=== PATIENT | female | born 1960 | race Caucasian/White ===

== ENCOUNTER 2018-01-16 09:28 | Inpatient (IN) | payer MEDICAID ==
[~2018-01-16] VITALS: Ht 175.3 cm; Wt 88.6 kg
[2018-01-16 13:04] LABS: PARTIAL THROMBOPLASTIN TIME 25 SECONDS (22-32); PROTHROMBIN TIME 10.7 SECONDS (9.0-12.0)
[2018-01-16 13:05] LABS: HEMATOCRIT 40.3 % (35.0-45.0); HEMOGLOBIN 13.9 g/dl (12.0-16.0); MEAN CORPUSCULAR HEMOGLOBIN 31.1 PG (27.0-31.0); MEAN CORPUSCULAR HGB CONC 34.6 % (33.0-36.5); MEAN CORPUSCULAR VOLUME 89.9 FL (78-98); MEAN PLATELET VOLUME 10.5 FL (7.4-10.4); PLATELET COUNT 138 X10'3 (140-440); RED BLOOD COUNT 4.49 X10'6 (4.20-5.60); RED CELL DISTRIBUTION WIDTH 14.3 % (11.5-14.5); WHITE BLOOD COUNT 13.1 X10'3 (4.5-11.0)
[2018-01-16 13:12] LABS: ALANINE AMINOTRANSFERASE 160 U/L (12-78); ALBUMIN 3.5 G/DL (3.4-5.0); ALBUMIN/GLOBULIN RATIO 0.9 (1.1-1.5); ALKALINE PHOSPHATASE 147 IU/L (46-116); ANION GAP 8 (8-16); ASPARTATE AMINO TRANSFERASE 84 U/L (10-37); BILIRUBIN,TOTAL 0.5 MG/DL (0.1-1.0); BLOOD UREA NITROGEN 9 MG/DL (7-18); BUN/CREATININE RATIO 16.7 (6.6-38.0); CALCIUM 8.5 MG/DL (8.5-10.1); CHLORIDE 107 MMOL/L (99-107); CREATININE 0.54 MG/DL (0.40-0.90); GLUCOSE 104 MG/DL (70-104); POTASSIUM 3.9 MMOL/L (3.5-5.1); SODIUM 142 MMOL/L (135-145); TOTAL CARBON DIOXIDE 27.5 MMOL/L (24-32); TOTAL PROTEIN 7.5 G/DL (6.4-8.2); eGFR > 90 ML/MIN
[2018-01-16 13:24] LABS: EOSINOPHILS % (MANUAL) 3 % (0-6); LARGE PLATELETS FEW; LYMPHOCYTES % (MANUAL) 10 % (21-51); MONOCYTES % (MANUAL) 3 % (2-12); NEUTROPHILS % (MANUAL) 84 % (42-75); PLATELET ESTIMATE DECREASED; TOTAL CELLS COUNTED 100
[2018-01-16] MEDS ORDERED: ondansetron 4mg rapidly disintigrating tab PO ONE (14:00)
[2018-01-16] MEDS ORDERED: HYDROmorphone 1 mg/ml syringe IV ONE (14:00)
[2018-01-16 14:05] LABS: CREATINE KINASE 91 U/L (26-192)
[2018-01-16] MEDS ORDERED: morphine 4 MG/ML inj SYRINge IV ONE (14:20)
[2018-01-16 14:28] LABS: CLARITY,URINE CLEAR (Clear); COLOR,URINE YELLOW (Yellow); GLUCOSE, URINE NEGATIVE (Neg); KETONES,URINE NEGATIVE (Neg); LEUKOCYTE ESTERASE ,URINE NEGATIVE (Neg); NITRITES, URINE NEGATIVE (Neg); OCCULT BLOOD,URINE TRACE-INTACT (Neg); PROTEIN,URINE NEGATIVE (Neg)
[2018-01-16 14:30] LABS: UA COLLECTION TYPE CLN CATCH MIDSTREAM
[2018-01-16] MEDS: normal saline 1000ml 1,000 ML IV SCH (14:31)
[2018-01-16] MEDS ORDERED: mag hydrox/Alum hydrox/simeth 30ml oral suspension PO PRN (14:35)
[2018-01-16] MEDS ORDERED: acetaminophen 325mg tablet PO PRN (14:35)
[2018-01-16] MEDS ORDERED: ondansetron/PF 4mg/2ml inj IV PRN (14:35)
[2018-01-16] MEDS ORDERED: magnesium hydroxide 30ml (MOM) UD suspension PO PRN (14:35)
[2018-01-16 14:37] LABS: BACTERIA,URINE FEW /HPF (Neg); MUCUS STRANDS NONE SEEN /LPF (Neg); RBC,URINE 0-2 /HPF (0-2); SQUAMOUS EPITHELIAL CELL,UR MODERATE /LPF (FEW); WBC,URINE NONE SEEN /HPF (0-4)
[2018-01-16 14:38] LABS: URINE AMPHETAMINE SCREEN NEGATIVE (Neg); URINE BARBITUATE SCREEN NEGATIVE (Neg); URINE BENZODIAZEPINES SCREEN NEGATIVE (Neg); URINE CANNABINOID SCREEN NEGATIVE (Neg); URINE COCAINE SCREEN NEGATIVE (Neg); URINE METHADONE SCREEN NEGATIVE (Neg); URINE OPIATE SCREEN NEGATIVE (Neg); URINE PHENCYCLIDINE SCREEN NEGATIVE (Neg)
[2018-01-16] MEDS ORDERED: MORPHINE 2MG in 2ml NS syringe IV PRN (16:10)
[2018-01-16] MEDS ORDERED: albuterol 2.5 MG/3 ML nebule NEB PRN (16:15)
[2018-01-16] MEDS: MORPHINE 2MG in 2ml NS syringe IV PRN (16:51)
[2018-01-16] MEDS: acetaminophen 325mg tablet PO SCH ×2 (16:51→20:39)
[2018-01-16] MEDS ORDERED: LISI10TA4 PO (17:02)
[2018-01-16 18:00] VITALS: BP 131/86
[2018-01-16] MEDS: oxyCODONE IR 5mg (immed. release) tablet PO PRN (20:39)
[2018-01-16 22:00] VITALS: BP 120/51
[2018-01-17] VITALS (18 sets, daily range): BP systolic 122–195; BP diastolic 56–125
[2018-01-17] MEDS: normal saline 1000ml 1,000 ML IV SCH ×3 (00:31→15:13)
[2018-01-17] MEDS: oxyCODONE IR 5mg (immed. release) tablet PO PRN ×3 (02:18→15:12)
[2018-01-17] MEDS ORDERED: ceFAZolin 1000mg inj ONE (06:33)
[2018-01-17] MEDS: MORPHINE 2MG in 2ml NS syringe IV PRN (07:21)
[2018-01-17] MEDS: acetaminophen 325mg tablet PO SCH ×3 (07:28→21:00)
[2018-01-17] MEDS ORDERED: fentaNYL/PF 50MCG/1 ML 2ML syringe ONE ×2 (08:35→09:07)
[2018-01-17] MEDS ORDERED: midazolam 2 mg/2 ml injection ONE (08:36)
[2018-01-17] MEDS ORDERED: LIDOcaine 2% (20mg/ml) 5ml vial ONE (08:45)
[2018-01-17] MEDS ORDERED: rocuronium 10mg/ml inj IV ONE (08:45)
[2018-01-17] MEDS ORDERED: propofol inj 20 ML IV ONE (08:45)
[2018-01-17] MEDS ORDERED: ringers solution, lacted 1,000 ML IV SCH (09:38)
[2018-01-17] MEDS ORDERED: ondansetron/PF 4mg/2ml inj IV PRN (09:40)
[2018-01-17] MEDS ORDERED: meperidine/PF 50mg/ml syringe IV PRN ×3 (09:40)
[2018-01-17] MEDS ORDERED: proCHLORperazine 10 MG/2 ml inj IV PRN (09:40)
[2018-01-17] MEDS ORDERED: morphine 4 MG/ML inj SYRINge IV PRN ×2 (09:40)
[2018-01-17] MEDS ORDERED: ipratropium/albuterol 3ml nebule NEB PRN (09:45)
[2018-01-17] MEDS ORDERED: neostigmine methylsulfate 1 MG/ML 10ml vial ONE (09:48)
[2018-01-17] MEDS ORDERED: glycopyrrolate 0.2mg/ml inj ONE (09:48)
[2018-01-17] MEDS ORDERED: haloperidol lactate 5mg/ml inj IM PRN (12:00)
[2018-01-17] MEDS ORDERED: haloperidol 5mg tablet PO PRN (12:00)
[2018-01-17] MEDS ORDERED: LORazepam 2 mg/ml vial IV PRN (12:00)
[2018-01-17] MEDS ORDERED: dextrose 50%-water 50ml dispensing syringe IV PRN (12:00)
[2018-01-17] MEDS ORDERED: LORazepam 1 MG tablet PO PRN (12:00)
[2018-01-17] MEDS ORDERED: lisinopril 10 MG tablet PO ONE (12:30)
[2018-01-17] MEDS ORDERED: metoprolol tartrate 12.5mg (1/2 tablet) PO ONE (12:30)
[2018-01-17 12:44] LABS: BASOPHILS # (AUTO) 0.1 X10'3 (0-0.2); BASOPHILS % (AUTO) 0.8 % (0-1); EOSINOPHILS # (AUTO) 0.3 X10'3 (0-0.9); EOSINOPHILS % (AUTO) 3.5 % (0-6); HEMATOCRIT 38.9 % (35.0-45.0); HEMOGLOBIN 13.2 g/dl (12.0-16.0); LYMPHOCYTES # (AUTO) 1.3 X10'3 (1.1-4.8); MEAN CORPUSCULAR HEMOGLOBIN 31.1 PG (27.0-31.0); MEAN CORPUSCULAR VOLUME 91.4 FL (78-98); MEAN PLATELET VOLUME 10.9 FL (7.4-10.4); MONOCYTES # (AUTO) 0.7 X10'3 (0-0.9); MONOCYTES % (AUTO) 7.3 % (2-12); NEUTROPHILS # (AUTO) 7.4 X10'3 (1.8-7.7); NEUTROPHILS % (AUTO) 75.4 % (42-75); PLATELET COUNT 106 X10'3 (140-440); RED BLOOD COUNT 4.26 X10'6 (4.20-5.60); RED CELL DISTRIBUTION WIDTH 14.6 % (11.5-14.5); WHITE BLOOD COUNT 9.8 X10'3 (4.5-11.0)
[2018-01-17 13:13] LABS: ALANINE AMINOTRANSFERASE 121 U/L (12-78); ALBUMIN 3.1 G/DL (3.4-5.0); ALBUMIN/GLOBULIN RATIO 0.8 (1.1-1.5); ALKALINE PHOSPHATASE 134 IU/L (46-116); ASPARTATE AMINO TRANSFERASE 58 U/L (10-37); BILIRUBIN,TOTAL 0.5 MG/DL (0.1-1.0); BLOOD UREA NITROGEN 12 MG/DL (7-18); CALCIUM 8.2 MG/DL (8.5-10.1); CHLORIDE 105 MMOL/L (99-107); GLUCOSE 109 MG/DL (70-104); POTASSIUM 4.2 MMOL/L (3.5-5.1); TOTAL CARBON DIOXIDE 29.3 MMOL/L (24-32); TOTAL PROTEIN 6.9 G/DL (6.4-8.2); eGFR > 90 ML/MIN
[2018-01-17 13:15] LABS: ANION GAP 8 (8-16); SODIUM 142 MMOL/L (135-145)
[2018-01-17] MEDS ORDERED: tamsulosin 0.4mg capsule PO PRN (18:45)
[2018-01-17] MEDS: metoprolol tartrate 12.5mg (1/2 tablet) PO SCH (19:36)
[2018-01-18] MEDS: oxyCODONE IR 5mg (immed. release) tablet PO PRN ×5 (01:17→20:30)
[2018-01-18 02:00] VITALS: BP 141/60
[2018-01-18] MEDS: normal saline 1000ml 1,000 ML IV SCH (05:26)
[2018-01-18 06:00] VITALS: BP 149/62
[2018-01-18] MEDS: lisinopril 10 MG tablet PO SCH (08:34)
[2018-01-18] MEDS: acetaminophen 325mg tablet PO SCH ×3 (08:35→20:26)
[2018-01-18] MEDS: metoprolol tartrate 12.5mg (1/2 tablet) PO SCH ×2 (08:35→20:25)
[2018-01-18 10:00] VITALS: BP 106/47
[2018-01-18 14:00] VITALS: BP 120/47
[2018-01-18 15:02] LABS: ALBUMIN 2.9 G/DL (3.4-5.0); ALBUMIN/GLOBULIN RATIO 0.8 (1.1-1.5); ANION GAP 4 (8-16); ASPARTATE AMINO TRANSFERASE 48 U/L (10-37); BILIRUBIN,TOTAL 0.6 MG/DL (0.1-1.0); BLOOD UREA NITROGEN 10 MG/DL (7-18); BUN/CREATININE RATIO 15.6 (6.6-38.0); CALCIUM 8.5 MG/DL (8.5-10.1); CHLORIDE 103 MMOL/L (99-107); CREATININE 0.64 MG/DL (0.40-0.90); GLUCOSE 117 MG/DL (70-104); POTASSIUM 3.8 MMOL/L (3.5-5.1); SODIUM 141 MMOL/L (135-145); TOTAL CARBON DIOXIDE 33.7 MMOL/L (24-32); TOTAL PROTEIN 6.7 G/DL (6.4-8.2); eGFR > 90 ML/MIN
[2018-01-18 15:03] LABS: ALANINE AMINOTRANSFERASE 91 U/L (12-78); ALKALINE PHOSPHATASE 122 IU/L (46-116)
[2018-01-18 18:32] VITALS: BP 153/51
[2018-01-18 22:00] VITALS: BP 106/47
[2018-01-19] MEDS: oxyCODONE IR 5mg (immed. release) tablet PO PRN ×6 (00:41→23:46)
[2018-01-19] MEDS: normal saline 1000ml 1,000 ML IV SCH (05:06)
[2018-01-19 06:00] VITALS: BP 135/75
[2018-01-19 06:30] VITALS: BP 160/60
[2018-01-19] MEDS: metoprolol tartrate 12.5mg (1/2 tablet) PO SCH ×2 (07:20→19:58)
[2018-01-19] MEDS: acetaminophen 325mg tablet PO SCH (07:22)
[2018-01-19] MEDS: lisinopril 10 MG tablet PO SCH (07:23)
[2018-01-19 10:00] VITALS: BP 128/56
[2018-01-19 14:00] VITALS: BP 137/52
[2018-01-19 17:07] LABS: BASOPHILS # (AUTO) 0.1 X10'3 (0-0.2); BASOPHILS % (AUTO) 1.6 % (0-1); EOSINOPHILS # (AUTO) 0.4 X10'3 (0-0.9); EOSINOPHILS % (AUTO) 5.7 % (0-6); HEMATOCRIT 35.2 % (35.0-45.0); LYMPHOCYTES # (AUTO) 1.5 X10'3 (1.1-4.8); LYMPHOCYTES % (AUTO) 21.9 % (21-51); MEAN CORPUSCULAR VOLUME 91.3 FL (78-98); MEAN PLATELET VOLUME 10.7 FL (7.4-10.4); MONOCYTES # (AUTO) 0.6 X10'3 (0-0.9); MONOCYTES % (AUTO) 8.3 % (2-12); NEUTROPHILS # (AUTO) 4.3 X10'3 (1.8-7.7); NEUTROPHILS % (AUTO) 62.5 % (42-75); PLATELET COUNT 118 X10'3 (140-440); RED BLOOD COUNT 3.86 X10'6 (4.20-5.60); RED CELL DISTRIBUTION WIDTH 14.4 % (11.5-14.5); WHITE BLOOD COUNT 6.9 X10'3 (4.5-11.0)
[2018-01-19 17:21] LABS: GLUCOSE 116 MG/DL (70-104); SODIUM 141 MMOL/L (135-145)
[2018-01-19 17:22] LABS: ALANINE AMINOTRANSFERASE 86 U/L (12-78); ALBUMIN 2.9 G/DL (3.4-5.0); ALBUMIN/GLOBULIN RATIO 0.8 (1.1-1.5); ALKALINE PHOSPHATASE 129 IU/L (46-116); ANION GAP 7 (8-16); ASPARTATE AMINO TRANSFERASE 51 U/L (10-37); BILIRUBIN,TOTAL 0.4 MG/DL (0.1-1.0); BLOOD UREA NITROGEN 12 MG/DL (7-18); BUN/CREATININE RATIO 18.8 (6.6-38.0); CALCIUM 8.2 MG/DL (8.5-10.1); CHLORIDE 102 MMOL/L (99-107); CREATININE 0.64 MG/DL (0.40-0.90); POTASSIUM 3.8 MMOL/L (3.5-5.1); TOTAL CARBON DIOXIDE 31.9 MMOL/L (24-32); TOTAL PROTEIN 6.7 G/DL (6.4-8.2); eGFR > 90 ML/MIN
[2018-01-19 18:17] VITALS: BP 160/65
[2018-01-19 22:31] VITALS: BP 142/67
[2018-01-20] MEDS: oxyCODONE IR 5mg (immed. release) tablet PO PRN ×3 (05:21→14:17)
[2018-01-20 06:00] VITALS: BP 129/69
[2018-01-20 08:00] VITALS: BP 153/55
[2018-01-20] MEDS ORDERED: enoxaparin 40mg/0.4ml syringe SUBCUT SCH (08:00)
[2018-01-20] MEDS: lisinopril 10 MG tablet PO SCH (08:09)
[2018-01-20] MEDS: metoprolol tartrate 12.5mg (1/2 tablet) PO SCH (08:09)
[2018-01-20 10:00] VITALS: BP 149/58
[2018-01-20] MEDS ORDERED: OXYC-658 PO ×2 (10:23→11:59)
[2018-01-20] MEDS ORDERED: METO25TA6 PO (10:23)
== END 2018-01-20 14:49 | disposition home health service (06) | DRG 308 ==
LOC: ER 09:28 → ED HOLD 14:56 → ORTHO 4S 17:11 → PACU 01-17 09:14 → ORTHO 4S 01-17 11:15
PROVIDERS: ADMIT Internal Medicine; ATTEND Internal Medicine
PROC: 0QH734Z Insertion of Internal Fixation Device into Left Upper Femur, Percutaneous Approach (ICD-10-PCS; principal; 2018-01-17 08:35)
DX: S72.012A Unspecified intracapsular fracture of left femur, initial encounter for closed fracture (principal); K70.10 Alcoholic hepatitis without ascites; I10 Essential (primary) hypertension; J44.9 Chronic obstructive pulmonary disease, unspecified; R74.8 Abnormal levels of other serum enzymes; B18.2 Chronic viral hepatitis C; X58.XXXA Exposure to other specified factors, initial encounter; Y90.0 Blood alcohol level of less than 20 mg/100 ml; R55 Syncope and collapse; F10.129 Alcohol abuse with intoxication, unspecified; Z87.891 Personal history of nicotine dependence; Y93.89 Activity, other specified; Y92.89 Other specified places as the place of occurrence of the external cause; Y99.8 Other external cause status
CPT/HCPCS: 36415; 70450; 71045; 73502; 76000; 80053; 80305; 80320; 81001; 82550; 82948; 85025; 85610; 85730; 87070; 94640; 94760; 96374; 97110; 97116; 97162; 97530; 99285; A4353; A6212; J0690; J1650; J2001; J2250; J2270; J2274; J2704; J2710; J3010; J3490; J7030; J7120

== ENCOUNTER 2018-01-30 10:20 | Outpatient (CLI) | payer MEDICAID ==
[~2018-01-30 10:20] MED LIST: LISI10TA4 PO; METO25TA6 PO; OXYC-658 PO
[2018-01-30 10:30] VITALS: BP 179/80
== END 2018-01-30 11:17 | disposition home or self-care (01) ==
LOC: ORTHO 10:20
PROVIDERS: ATTEND Nurse Practitioner Family
DX: S72.002A Fracture of unspecified part of neck of left femur, initial encounter for closed fracture (principal); I10 Essential (primary) hypertension; B19.20 Unspecified viral hepatitis C without hepatic coma; F17.210 Nicotine dependence, cigarettes, uncomplicated; X58.XXXA Exposure to other specified factors, initial encounter; Y93.89 Activity, other specified; Y92.89 Other specified places as the place of occurrence of the external cause; Y99.8 Other external cause status
CPT/HCPCS: 99213

== ENCOUNTER 2018-02-20 10:20 | Outpatient (CLI) | payer MEDICAID | END 2018-02-20 11:28 | disposition home or self-care (01) | LOC: ORTHO 10:20 | PROVIDERS: ATTEND Nurse Practitioner Family | DX: S89.92XD Unspecified injury of left lower leg, subsequent encounter (principal); I10 Essential (primary) hypertension; F17.210 Nicotine dependence, cigarettes, uncomplicated; X58.XXXD Exposure to other specified factors, subsequent encounter | CPT/HCPCS: 73502 ==

== ENCOUNTER 2018-04-16 09:25 | Outpatient (CLI) | payer MEDICAID ==
[~2018-04-16] VITALS: Ht 175.3 cm; Wt 185.0 kg
[2018-04-16 09:35] VITALS: BP 187/106
== END 2018-04-16 10:10 | disposition home or self-care (01) ==
LOC: ORTHO 09:25
PROVIDERS: ATTEND Nurse Practitioner Family
DX: S72.92XD Unspecified fracture of left femur, subsequent encounter for closed fracture with routine healing (principal); S89.92XD Unspecified injury of left lower leg, subsequent encounter; F17.210 Nicotine dependence, cigarettes, uncomplicated; I10 Essential (primary) hypertension; F10.10 Alcohol abuse, uncomplicated; Z86.19 Personal history of other infectious and parasitic diseases; Z79.899 Other long term (current) drug therapy; Z98.890 Other specified postprocedural states; X58.XXXD Exposure to other specified factors, subsequent encounter
CPT/HCPCS: 73502; 99213

== ENCOUNTER 2018-09-08 11:25 | Emergency (ER) | payer MEDICAID ==
[~2018-09-08] VITALS: Ht 175.3 cm; Wt 84.1 kg
[2018-09-08] MEDS ORDERED: HYDROcodone/acetaminophen 10/325mg tab PO ONE (12:10)
[2018-09-08] MEDS ORDERED: predniSONE 20 mg tablet PO ONE (12:10)
[2018-09-08] MEDS ORDERED: ketorolac trometh inj. 60 MG/2 ML VIAL IM ONE (12:10)
[2018-09-08] MEDS ORDERED: orphenadrine citrate 60mg/2ml inj. IM ONE (12:10)
[2018-09-08 12:28] VITALS: BP 177/97
[2018-09-08] MEDS ORDERED: PRED20TA PO (13:08)
[2018-09-08] MEDS ORDERED: ORPH100T2 PO (13:08)
[2018-09-08] MEDS ORDERED: HYDR-4353 PO (13:08)
== END 2018-09-08 13:33 | disposition home or self-care (01) ==
LOC: ER 11:26
DX: M54.41 Lumbago with sciatica, right side (principal); F12.10 Cannabis abuse, uncomplicated
CPT/HCPCS: 96372; 99284; J1885; J2360; J7512

== ENCOUNTER 2018-09-21 15:38 | Emergency (ER) | payer MEDICAID ==
[~2018-09-21] VITALS: Ht 175.3 cm; Wt 83.5 kg
[~2018-09-21 15:38] MED LIST changes: +HYDR-4353 PO; +ORPH100T2 PO; +PRED20TA PO
[2018-09-21 15:57] VITALS: BP 166/79
[2018-09-21] MEDS ORDERED: gabapentin 400mg capsule PO ONE (16:20)
[2018-09-21] MEDS ORDERED: gabapentin 300mg capsule PO ONE (16:20)
[2018-09-21] MEDS ORDERED: ondansetron 4mg rapidly disintigrating tab PO ONE (16:20)
[2018-09-21] MEDS ORDERED: ONDA4TAB6 PO (16:30)
[2018-09-21] MEDS ORDERED: GABA-532 PO (16:30)
--- NOTE | 2018-09-21 16:35 | NUR ---
Pt has no physical complaints at this time aside from nausea due to ETOH withdrawal.
== END 2018-09-21 16:41 | disposition home or self-care (01) ==
LOC: ER 15:39
DX: F10.239 Alcohol dependence with withdrawal, unspecified (principal); Z02.89 Encounter for other administrative examinations; F12.90 Cannabis use, unspecified, uncomplicated; Z79.899 Other long term (current) drug therapy; Y90.9 Presence of alcohol in blood, level not specified
CPT/HCPCS: 99284

== ENCOUNTER 2019-08-18 15:21 | Observation (INO) | payer MEDICAID, OTHER ==
[~2019-08-18] VITALS: Ht 175.3 cm; Wt 86.4 kg
[~2019-08-18 15:21] MED LIST changes: +ALBU6.7H9 INH; +GABA-532 PO; +GUAI120015 PO; -HYDR-4353 PO; +ONDA4TAB6 PO; -PRED20TA PO
[2019-08-18 16:05] LABS: EOSINOPHILS # (AUTO) 0.2 X10'3 (0-0.9); EOSINOPHILS % (AUTO) 2.5 % (0-6); HEMOGLOBIN 14.3 g/dl (12.0-16.0); MEAN CORPUSCULAR HEMOGLOBIN 32.4 PG (27.0-31.0)
[2019-08-18 16:08] LABS: BASOPHILS # (AUTO) 0.1 X10'3 (0-0.2); BASOPHILS % (AUTO) 0.9 % (0-1); HEMATOCRIT 41.4 % (35.0-45.0); LYMPHOCYTES # (AUTO) 1.7 X10'3 (1.1-4.8); LYMPHOCYTES % (AUTO) 22.9 % (21-51); MEAN CORPUSCULAR HGB CONC 34.5 g/dL (33.0-36.5); MEAN PLATELET VOLUME 10.3 FL (7.4-10.4); MONOCYTES # (AUTO) 0.7 X10'3 (0-0.9); MONOCYTES % (AUTO) 9.3 % (2-12); NEUTROPHILS # (AUTO) 4.8 X10'3 (1.8-7.7); NEUTROPHILS % (AUTO) 64.4 % (42-75); PLATELET COUNT 122 X10'3 (140-440); RED CELL DISTRIBUTION WIDTH 14.8 % (11.5-14.5); WHITE BLOOD COUNT 7.5 X10'3 (4.5-11.0)
[2019-08-18 16:23] LABS: ALANINE AMINOTRANSFERASE 128 U/L (12-78); ALBUMIN 3.7 G/DL (3.4-5.0); ALBUMIN/GLOBULIN RATIO 0.9 (1.1-1.5); ALKALINE PHOSPHATASE 109 IU/L (46-116); ANION GAP 10 (8-16); ASPARTATE AMINO TRANSFERASE 77 U/L (10-37); BILIRUBIN,TOTAL 0.5 MG/DL (0.1-1.0); BLOOD UREA NITROGEN 12 MG/DL (7-18); BUN/CREATININE RATIO 16.9 (6.6-38.0); CHLORIDE 102 MMOL/L (99-107); CREATININE 0.71 MG/DL (0.40-0.90); GLUCOSE 102 MG/DL (70-104); SODIUM 140 MMOL/L (135-145); TOTAL CARBON DIOXIDE 27.8 MMOL/L (24-32); TOTAL PROTEIN 7.8 G/DL (6.4-8.2); eGFR 85 ML/MIN
[2019-08-18] MEDS ORDERED: aspirin 81mg tab.chew PO ONE (16:50)
[2019-08-18] MEDS ORDERED: nitroGLYCERIN 0.4mg SUBLingual tab SL PRN ×3 (16:50→18:15)
--- NOTE | 2019-08-18 17:25 | NUR ---
PER SHAHZAD LOPEZ, HOLD OFF ON NITRO.
[2019-08-18] MEDS ORDERED: cloNIDine 0.1 mg tablet PO ONE (17:35)
[2019-08-18] MEDS ORDERED: metoprolol tartrate 1mg/ml inj IV ONE (17:35)
[2019-08-18] MEDS ORDERED: mag hydrox/Alum hydrox/simeth 30ml oral suspension PO PRN (18:05)
[2019-08-18] MEDS ORDERED: morphine 2 MG/ML inj. syringe IV PRN ×2 (18:05)
[2019-08-18] MEDS ORDERED: ondansetron/PF 4mg/2ml inj IV PRN (18:05)
[2019-08-18] MEDS ORDERED: acetaminophen 325mg tablet PO PRN ×2 (18:05)
[2019-08-18] MEDS ORDERED: HYDROcodone/acetaminophen 5mg/325mg tablet PO PRN (18:05)
[2019-08-18] MEDS ORDERED: magnesium hydroxide 30ml (MOM) UD suspension PO PRN (18:05)
[2019-08-18] MEDS ORDERED: furosemide 10 MG/1 ML 10ml inj IV ONE (18:15)
[2019-08-18] MEDS ORDERED: regadenoson 0.4mg/5ml syringe IV PRN (18:15)
[2019-08-18] MEDS ORDERED: aminophylline 250mg/10ml inj. IV PRN (18:15)
[2019-08-18] MEDS ORDERED: metoprolol tartrate 1mg/ml inj IV PRN (18:15)
--- NOTE | 2019-08-18 19:59 | NUR ---
AIR MARSHAL INFORMED PATIENT ON TELE #27
--- NOTE | 2019-08-18 21:00 | NUR ---
received report from TANYA De Luna
[2019-08-18 22:00] VITALS: BP 93/48
[2019-08-19] VITALS (11 sets, daily range): BP systolic 117–151; BP diastolic 56–80
--- NOTE | 2019-08-19 00:01 | NUR ---
OPTOELECTRONICS ENGINEER INFORMED PATIENT ON TELE #25
[2019-08-19 05:23] LABS: CHOL/HDL RATIO 2.9 (0.00-4.99); CHOLESTEROL 168 MG/DL (0-200); HDL CHOLESTEROL 57 MG/DL (35-60); LDL CHOLESTEROL 106 MG/DL (50-100); TRIGLYCERIDES 61 MG/DL (20-135)
--- NOTE | 2019-08-19 06:05 | NUR ---
Patient in room MED 311. I have received report from TANYA Kay and had the opportunity to ask questions and assume patient care.
--- NOTE | 2019-08-19 06:05 | NUR ---
gave report to TANYA Sim and TANYA Clark "o"
[2019-08-19] MEDS ORDERED: aspirin 81mg tablet.DR PO SCH (08:00)
[2019-08-19] MEDS ORDERED: lisinopril 10 MG tablet PO SCH (08:00)
[2019-08-19] MEDS ORDERED: nitroGLYCERIN 0.4mg/hour patch TD SCH (08:00)
[2019-08-19 08:37] LABS: BASOPHILS # (AUTO) 0.1 X10'3 (0-0.2); BASOPHILS % (AUTO) 1.4 % (0-1); EOSINOPHILS # (AUTO) 0.2 X10'3 (0-0.9); EOSINOPHILS % (AUTO) 3.5 % (0-6); HEMATOCRIT 39.7 % (35.0-45.0); HEMOGLOBIN 13.6 g/dl (12.0-16.0); LYMPHOCYTES # (AUTO) 1.8 X10'3 (1.1-4.8); LYMPHOCYTES % (AUTO) 27.5 % (21-51); MEAN CORPUSCULAR HEMOGLOBIN 31.9 PG (27.0-31.0); MEAN CORPUSCULAR HGB CONC 34.2 g/dL (33.0-36.5); MEAN CORPUSCULAR VOLUME 93.3 FL (78-98); MEAN PLATELET VOLUME 10.6 FL (7.4-10.4); MONOCYTES # (AUTO) 0.6 X10'3 (0-0.9); MONOCYTES % (AUTO) 9.8 % (2-12); NEUTROPHILS # (AUTO) 3.8 X10'3 (1.8-7.7); NEUTROPHILS % (AUTO) 57.8 % (42-75); PLATELET COUNT 115 X10'3 (140-440); RED BLOOD COUNT 4.26 X10'6 (4.20-5.60); RED CELL DISTRIBUTION WIDTH 14.5 % (11.5-14.5); WHITE BLOOD COUNT 6.5 X10'3 (4.5-11.0)
[2019-08-19 08:50] LABS: ALBUMIN 3.2 G/DL (3.4-5.0); ANION GAP 6 (8-16); BLOOD UREA NITROGEN 14 MG/DL (7-18); CALCIUM 8.6 MG/DL (8.5-10.1); CHLORIDE 104 MMOL/L (99-107); CREATININE 0.61 MG/DL (0.40-0.90); GLUCOSE 97 MG/DL (70-104); SODIUM 139 MMOL/L (135-145); TOTAL CARBON DIOXIDE 28.8 MMOL/L (24-32); eGFR > 90 ML/MIN
[2019-08-19 08:58] LABS: POTASSIUM 3.9 MMOL/L (3.5-5.1)
--- NOTE | 2019-08-19 09:20 | NUR ---
Patient to AL for stress test.
[2019-08-19] MEDS ORDERED: furosemide 20 MG/2 ML vial IV ONE (11:25)
--- NOTE | 2019-08-19 12:15 | NUR ---
DR. LÓPEZ SAYS OKAY FOR PATIENT TO EAT MENDY NEGATIVE
[2019-08-19] MEDS ORDERED: FURO-150 PO (12:38)
--- NOTE | 2019-08-19 12:42 | NUR ---
PAGED ECHO "IF YOU CAN PLEASE COME DO ECHO ON ROOM 311 EVAN, SHE WILL LIKELY GO HOME AFTERWARD. THANK YOU, ERNA MULLEN [phone]"
--- NOTE | 2019-08-19 14:15 | NUR ---
IV removed from R AC Catheter intact no s/s of complications, and pt tolerated well.
--- NOTE | 2019-08-19 14:15 | NUR ---
Patient stable for discharge per MD orders. Prescription called in to [facility] pharmacy in [place] at 1425. All discharge instructions reviewed with patient, all questions answered. PIV discontinued, cannula intact. Clean dry dressing in place. Flu vaccine given. traffic monitor specialist removed. All belongings collected, sent with patient. Patient ambulated to [facility] with hospital personnel, to transport self home. Patient left facility at 1425.
[2019-08-20] MEDS ORDERED: pneumococcal 23-VAL P-sac vacc 25 mcg/0.5ml vial IMVAC ONE (10:00)
[2019-08-20] MEDS ORDERED: FLU VACC QS2019-20 36MOS UP/PF 60 MCG/0.5 ML SYRINGE IMVAC ONE (11:00)
== END 2019-08-19 14:15 | disposition home or self-care (01) ==
LOC: ER 15:21 → ED HOLD 18:03 → MED 3N 19:40
PROVIDERS: ADMIT Internal Medicine; ATTEND Internal Medicine
DX: R07.89 Other chest pain (principal); I10 Essential (primary) hypertension; J44.9 Chronic obstructive pulmonary disease, unspecified; F17.210 Nicotine dependence, cigarettes, uncomplicated; Z23 Encounter for immunization; Z79.899 Other long term (current) drug therapy
CPT/HCPCS: 36415; 71045; 78452; 80048; 80053; 80061; 83880; 84484; 85025; 87081; 90471; 93005; 93017; 93306; 96374; 96375; 96376; 99284; A9500; G0378; J0280; J1940; J2785; J3490; Q2037

== ENCOUNTER 2020-12-01 17:55 | Emergency (ER) | payer MEDICAID ==
[~2020-12-01] VITALS: Ht 170.2 cm; Wt 81.8 kg
[~2020-12-01 17:55] MED LIST changes: -ALBU6.7H9 INH; +FURO-150 PO; -GABA-532 PO; -GUAI120015 PO; +LISI10TA27 PO; -LISI10TA4 PO; -METO25TA6 PO; -ONDA4TAB6 PO; -ORPH100T2 PO; -OXYC-658 PO
[2020-12-01] MEDS ORDERED: fentaNYL/PF 50MCG/1 ML 2ML syringe IV ONE (18:50)
[2020-12-01] MEDS ORDERED: ceFAZolin/D5W- 1GM premix 50 ML IV STA (19:04)
[2020-12-01] MEDS ORDERED: propofol 10mg/ml 20ml vial IV ONE (19:10)
--- NOTE | 2020-12-01 20:02 | NUR ---
a total of 200 mg of Propofol given during procedure
[2020-12-01] MEDS ORDERED: CEPH-585 PO (20:07)
[2020-12-01] MEDS ORDERED: HYDR-3972 PO (20:07)
[2020-12-01 20:12] VITALS: BP 141/78
== END 2020-12-01 20:35 | disposition home or self-care (01) ==
LOC: ER 17:55
DX: S52.512A Displaced fracture of left radial styloid process, initial encounter for closed fracture (principal); M25.532 Pain in left wrist; I10 Essential (primary) hypertension; J44.9 Chronic obstructive pulmonary disease, unspecified; F12.90 Cannabis use, unspecified, uncomplicated; Z72.89 Other problems related to lifestyle; Z79.2 Long term (current) use of antibiotics; Z79.899 Other long term (current) drug therapy; W01.0XXA Fall on same level from slipping, tripping and stumbling without subsequent striking against object, initial encounter; Y93.01 Activity, walking, marching and hiking; Y92.89 Other specified places as the place of occurrence of the external cause; Y99.8 Other external cause status
CPT/HCPCS: 25605; 73110; 94799; 96374; 96375; 99152; 99285; J0690; J3010; 94760

== ENCOUNTER 2020-12-15 09:28 | Day surgery (SDC) | payer MEDICAID ==
[~2020-12-15] VITALS: Ht 172.7 cm; Wt 81.6 kg
[2020-12-15] VITALS (12 sets, daily range): BP systolic 161–191; BP diastolic 73–99
[~2020-12-15 09:28] MED LIST changes: +ALBU8.5H8 INH; +AMLO5TAB16 PO; +BECL7.3A INH; +CALC-642 PO; +CEPH250T PO; +CHOL400T57 PO; +FLUO10CA30 PO; -FURO-150 PO; +GABA-530 PO; +HYDR-3972 PO; +IBUP-1984 PO; +LIDOcaine 1% (10mg/ml) 2ml vial ONE; -LISI10TA27 PO; +LISI20TA28 PO; +NAPR-996 PO; +albuterol 2.5 MG/3 ML nebule NEB ONE; +cefazolin/dext.iso 2gm/100ml 100 ML IV ONE; +famotidine 20mg tablet PO ONE; +ringers solution, lacted 1,000 ML IV SCH
[2020-12-15] MEDS ORDERED: ipratropium/albuterol 3ml nebule NEB PRN (11:15)
[2020-12-15 11:21] LABS: BASOPHILS # (AUTO) 0.1 X10'3 (0-0.2); EOSINOPHILS # (AUTO) 0.3 X10'3 (0-0.9); HEMOGLOBIN 12.9 g/dl (12.0-16.0); RED CELL DISTRIBUTION WIDTH 15.6 % (11.5-14.5)
[2020-12-15 11:22] LABS: BASOPHILS % (AUTO) 1.1 % (0-1); EOSINOPHILS % (AUTO) 5.7 % (0-6); HEMATOCRIT 38.5 % (35.0-45.0); LYMPHOCYTES # (AUTO) 1.2 X10'3 (1.1-4.8); LYMPHOCYTES % (AUTO) 20.3 % (21-51); MEAN CORPUSCULAR HEMOGLOBIN 30.6 PG (27.0-31.0); MEAN CORPUSCULAR HGB CONC 33.5 g/dL (33.0-36.5); MEAN CORPUSCULAR VOLUME 91.1 FL (78-98); MEAN PLATELET VOLUME 9.6 FL (7.4-10.4); MONOCYTES # (AUTO) 0.6 X10'3 (0-0.9); MONOCYTES % (AUTO) 9.7 % (2-12); NEUTROPHILS # (AUTO) 3.9 X10'3 (1.8-7.7); NEUTROPHILS % (AUTO) 63.2 % (42-75); PLATELET COUNT 145 X10'3 (140-440); RED BLOOD COUNT 4.23 X10'6 (4.20-5.60); WHITE BLOOD COUNT 6.1 X10'3 (4.5-11.0)
[2020-12-15 11:35] LABS: PARTIAL THROMBOPLASTIN TIME 26 SECONDS (22-32)
[2020-12-15 11:37] LABS: ALANINE AMINOTRANSFERASE 49 U/L (12-78); ALBUMIN 3.4 G/DL (3.4-5.0); ALBUMIN/GLOBULIN RATIO 0.8 (1.1-1.5); ALKALINE PHOSPHATASE 168 IU/L (46-116); ANION GAP 7 (8-16); ASPARTATE AMINO TRANSFERASE 45 U/L (10-37); BILIRUBIN,TOTAL 0.5 MG/DL (0.1-1.0); BLOOD UREA NITROGEN 9 MG/DL (7-18); CALCIUM 8.8 MG/DL (8.5-10.1); CHLORIDE 104 MMOL/L (99-107); CREATININE 0.45 MG/DL (0.40-0.90); GLUCOSE 98 MG/DL (70-104); POTASSIUM 3.6 MMOL/L (3.5-5.1); SODIUM 142 MMOL/L (135-145); TOTAL CARBON DIOXIDE 30.7 MMOL/L (24-32); TOTAL PROTEIN 7.5 G/DL (6.4-8.2); eGFR > 90 ML/MIN
[2020-12-15] MEDS ORDERED: sevoflurane 250ml liquid IH ONE (13:25)
[2020-12-15] MEDS ORDERED: midazolam 1 mg/ML 2ml injection ONE ×2 (13:27)
[2020-12-15] MEDS ORDERED: fentaNYL/PF 50MCG/1 ML 2ML syringe ONE (13:27)
[2020-12-15] MEDS ORDERED: BUPIVAcaine/PF 2.5 mg/ml (0.25%) 30ml vial ONE (14:09)
[2020-12-15] MEDS ORDERED: proCHLORperazine 10 MG/2 ml inj IV PRN (14:30)
[2020-12-15] MEDS ORDERED: morphine 4 MG/ML inj SYRINge IV PRN (14:30)
[2020-12-15] MEDS ORDERED: ringers solution, lacted 1,000 ML IV SCH (14:30)
[2020-12-15] MEDS ORDERED: morphine 2 MG/ML inj. syringe IV PRN (14:30)
[2020-12-15] MEDS ORDERED: ondansetron/PF 4mg/2ml inj IV PRN (14:30)
[2020-12-15] MEDS ORDERED: meperidine/PF 25mg/ml syringe IV PRN ×3 (14:30)
[2020-12-15] MEDS ORDERED: ROPIVAcaine 0.5% (5mg/ml) 30ml vial ONE (14:48)
[2020-12-15] MEDS ORDERED: rocuronium 10mg/ml inj IV ONE (14:48)
[2020-12-15] MEDS ORDERED: glycopyrrolate 0.2mg/ml inj ONE (14:48)
[2020-12-15] MEDS ORDERED: LIDOcaine 1%/PF 5ML 10 MG/ML VIAL ONE (14:48)
[2020-12-15] MEDS ORDERED: neostigmine methylsulfate 1 MG/ML 10ml vial ONE (14:48)
[2020-12-15] MEDS ORDERED: propofol inj 20 ML IV ONE (14:48)
[2020-12-15] MEDS ORDERED: ondansetron/PF 4mg/2ml inj ONE (14:48)
[2020-12-15] MEDS ORDERED: acetaminophen 1,000mg/100ml IV 100 ML IV ONE (14:49)
[2020-12-15] MEDS ORDERED: ketorolac trometh. 30mg/ml inj. ONE (14:49)
[2020-12-15] MEDS ORDERED: dexamethasone sod phosphate 4mg/ml inj. ONE (14:49)
--- NOTE | 2020-12-15 15:22 | NUR ---
Received from OR via [facility] IN STABLE CONDITION, DRESSING CDI AND IV FLUIDS RUNNING , accompanied by Anesthesiologist DR. JACKSON and report given by Anesthesiolgist. Addendum: 12/15/20 at 1538 by Natalya Luo RN Amended: Links added.
[2020-12-15] MEDS ORDERED: labetalol 20mg/4ml (5mg/ml) syringe IV PRN (16:05)
--- NOTE | 2020-12-15 17:21 | NUR ---
PATIENT DISCHARGED HOME VIA WHEELCHAIR IN STABLE CONDITION AFTER VERBAL AND WRITTEN DISCHARGE INSTRUCTIONS GIVEN. IV DC'D, DRESSING CLEAN DRY AND INTACT. PATIENT LEFT IN PRIVATE VEHICLE WITH FAMILY MEMBER WITHOUT INCIDENT. PATIENT LEFT WITH PERSONAL BELONGINGS INCLUDING GLASSES, DENTURES, CELLPHONE AND WALKER. Addendum: 12/15/20 at 1722 by Natalya Luo RN Amended: Links added.
== END 2020-12-15 16:54 | disposition home or self-care (01) ==
LOC: PAS 09:28
PROVIDERS: ATTEND Orthopaedic Surgery Hand Surgery
DX: S52.572A Other intraarticular fracture of lower end of left radius, initial encounter for closed fracture (principal); S52.292A Other fracture of shaft of left ulna, initial encounter for closed fracture; G89.18 Other acute postprocedural pain; Z79.01 Long term (current) use of anticoagulants; J44.9 Chronic obstructive pulmonary disease, unspecified; F17.210 Nicotine dependence, cigarettes, uncomplicated; I10 Essential (primary) hypertension; G89.29 Other chronic pain; M19.90 Unspecified osteoarthritis, unspecified site; M81.0 Age-related osteoporosis without current pathological fracture; Z86.19 Personal history of other infectious and parasitic diseases; Z72.89 Other problems related to lifestyle; Z20.822 Contact with and (suspected) exposure to COVID-19; Z79.899 Other long term (current) drug therapy; W19.XXXA Unspecified fall, initial encounter; Y93.89 Activity, other specified; Y92.098 Other place in other non-institutional residence as the place of occurrence of the external cause; Y99.8 Other external cause status
CPT/HCPCS: 25545; 25609; 64415; 76942; 80053; 82948; 85025; 85610; 85730; 87426; 93005; 94640; 94760; A6258; C1713; J0131; J1100; J1885; J2001; J2250; J2405; J2704; J2710; J3010; J3490; A4618; A6449; A7000; J2795; J7120

== ENCOUNTER 2021-01-05 03:11 | Emergency (ER) | payer MEDICAID ==
[~2021-01-05] VITALS: Ht 162.6 cm; Wt 82.2 kg
[~2021-01-05 03:11] MED LIST changes: -LIDOcaine 1% (10mg/ml) 2ml vial ONE; -albuterol 2.5 MG/3 ML nebule NEB ONE; -cefazolin/dext.iso 2gm/100ml 100 ML IV ONE; -famotidine 20mg tablet PO ONE; -ringers solution, lacted 1,000 ML IV SCH
[2021-01-05] MEDS ORDERED: normal saline 1000ml 1,000 ML IVB ONE (03:20)
--- NOTE | 2021-01-05 04:24 | NUR ---
Patient sleeping and is in no acute distress.
[2021-01-05 05:25] VITALS: BP 144/68
[2021-01-05] MEDS ORDERED: normal saline 1000ML IV soln IVB ONE (08:20)
--- NOTE | 2021-01-05 08:26 | NUR ---
IN TO SEE PT NOTED SMELL OF KETONES IN ROOM. ACCU CHECK 113. DR NATARAJAN NOTIFED ORDERS RECIEVED FOR LAB WORK AND IVF.
[2021-01-05 08:43] LABS: BASOPHILS # (AUTO) 0.1 X10'3 (0-0.2); BASOPHILS % (AUTO) 0.7 % (0-1); EOSINOPHILS % (AUTO) 0.2 % (0-6); HEMATOCRIT 42.2 % (35.0-45.0); HEMOGLOBIN 14.5 g/dl (12.0-16.0); LYMPHOCYTES # (AUTO) 2.4 X10'3 (1.1-4.8); LYMPHOCYTES % (AUTO) 23.3 % (21-51); MEAN CORPUSCULAR HEMOGLOBIN 31.8 PG (27.0-31.0); MEAN CORPUSCULAR HGB CONC 34.2 g/dL (33.0-36.5); MEAN PLATELET VOLUME 9.8 FL (7.4-10.4); MONOCYTES # (AUTO) 0.7 X10'3 (0-0.9); NEUTROPHILS % (AUTO) 68.8 % (42-75); PLATELET COUNT 235 X10'3 (140-440); RED BLOOD COUNT 4.54 X10'6 (4.20-5.60); RED CELL DISTRIBUTION WIDTH 15.8 % (11.5-14.5); WHITE BLOOD COUNT 10.1 X10'3 (4.5-11.0)
[2021-01-05 09:00] LABS: ALANINE AMINOTRANSFERASE 51 U/L (12-78); ALBUMIN 3.5 G/DL (3.4-5.0); ALBUMIN/GLOBULIN RATIO 0.8 (1.1-1.5); ALKALINE PHOSPHATASE 185 IU/L (46-116); ANION GAP 13 (8-16); ASPARTATE AMINO TRANSFERASE 52 U/L (10-37); BILIRUBIN,TOTAL 0.3 MG/DL (0.1-1.0); BLOOD UREA NITROGEN 17 MG/DL (7-18); BUN/CREATININE RATIO 18.9 (6.6-38.0); CALCIUM 7.2 MG/DL (8.5-10.1); CHLORIDE 106 MMOL/L (99-107); GLUCOSE 116 MG/DL (70-104); POTASSIUM 3.5 MMOL/L (3.5-5.1); SODIUM 145 MMOL/L (135-145); TOTAL CARBON DIOXIDE 25.9 MMOL/L (24-32); TOTAL PROTEIN 7.7 G/DL (6.4-8.2); eGFR 64 ML/MIN
== END 2021-01-05 10:42 | disposition home or self-care (01) ==
LOC: ER 03:11
DX: F10.129 Alcohol abuse with intoxication, unspecified (principal); I10 Essential (primary) hypertension; J44.9 Chronic obstructive pulmonary disease, unspecified; F17.210 Nicotine dependence, cigarettes, uncomplicated; F12.90 Cannabis use, unspecified, uncomplicated; Z72.89 Other problems related to lifestyle; Z79.2 Long term (current) use of antibiotics; Z79.899 Other long term (current) drug therapy; Y90.0 Blood alcohol level of less than 20 mg/100 ml
CPT/HCPCS: 36415; 80053; 80320; 82948; 85025; 96360; 96361; 99284; J7030

== ENCOUNTER 2021-01-30 11:10 | Day surgery (SDC) | payer MEDICAID ==
[~2021-01-30] VITALS: Ht 175.3 cm; Wt 81.8 kg
[2021-01-30 11:20] VITALS: BP 143/67
[2021-01-30] MEDS ORDERED: DULO60CA63 PO (11:55)
[2021-01-30] MEDS ORDERED: fentaNYL/PF 50MCG/1 ML 2ML syringe ONE (12:03)
[2021-01-30] MEDS ORDERED: MIDAZolam 1 MG/ML 5ML VIAL ONE (12:04)
[2021-01-30] MEDS ORDERED: LIDOcaine Viscous 15ml cup ONE (12:04)
[2021-01-30 13:05] VITALS: BP 146/84
[2021-01-30 13:15] VITALS: BP 125/81
[2021-01-30 13:25] VITALS: BP 139/74
[2021-01-30 13:35] VITALS: BP 150/97
== END 2021-01-30 13:45 | disposition home or self-care (01) ==
LOC: GI LAB 11:10
PROVIDERS: ATTEND Internal Medicine Gastroenterology
DX: K74.60 Unspecified cirrhosis of liver (principal); I85.00 Esophageal varices without bleeding; K29.50 Unspecified chronic gastritis without bleeding; B96.81 Helicobacter pylori [H. pylori] as the cause of diseases classified elsewhere; F17.210 Nicotine dependence, cigarettes, uncomplicated; I10 Essential (primary) hypertension; Z86.19 Personal history of other infectious and parasitic diseases; Z79.899 Other long term (current) drug therapy
CPT/HCPCS: 43239; 99152; J2250; J3010; J7040; A4620

== ENCOUNTER 2021-07-06 14:09 | Emergency (ER) | payer MEDICAID ==
[~2021-07-06] VITALS: Ht 175.3 cm; Wt 90.9 kg
[~2021-07-06 14:09] MED LIST changes: +ALBU8.5H17 INH; -ALBU8.5H8 INH; -AMLO5TAB16 PO; +ASPI81TA52 PO; -BECL7.3A INH; -CEPH250T PO; +DULO20CA18 PO; +ELBA1TAB PO; -FLUO10CA30 PO; -IBUP-1984 PO; +LOSA25TA96 PO; +NALT50TA PO; -NAPR-996 PO; +OMEP-50 PO
[2021-07-06 14:38] VITALS: BP 143/39
[2021-07-06] MEDS ORDERED: HYDR-3972 PO ×2 (14:51→15:02)
== END 2021-07-06 15:28 | disposition home or self-care (01) ==
LOC: ER 14:10
DX: M25.561 Pain in right knee (principal); M19.90 Unspecified osteoarthritis, unspecified site; I10 Essential (primary) hypertension; J44.9 Chronic obstructive pulmonary disease, unspecified; G89.29 Other chronic pain; F12.90 Cannabis use, unspecified, uncomplicated; Z72.89 Other problems related to lifestyle; Z98.890 Other specified postprocedural states; Z79.82 Long term (current) use of aspirin; Z79.899 Other long term (current) drug therapy
CPT/HCPCS: 99283

== ENCOUNTER 2021-10-23 05:25 | Day surgery (SDC) | payer MEDICAID ==
[2021-10-15 12:30] LABS: BASOPHILS # (AUTO) 0.1 X10'3 (0-0.2); EOSINOPHILS # (AUTO) 0.3 X10'3 (0-0.9); EOSINOPHILS % (AUTO) 3.6 % (0-6); LYMPHOCYTES # (AUTO) 1.7 X10'3 (1.1-4.8); MEAN CORPUSCULAR HEMOGLOBIN 31.2 PG (27.0-31.0); MEAN CORPUSCULAR HGB CONC 33.9 g/dL (33.0-36.5); MEAN CORPUSCULAR VOLUME 92.1 FL (78-98); MEAN PLATELET VOLUME 10.6 FL (7.4-10.4); MONOCYTES # (AUTO) 0.9 X10'3 (0-0.9); MONOCYTES % (AUTO) 10.7 % (2-12); NEUTROPHILS # (AUTO) 5.5 X10'3 (1.8-7.7); NEUTROPHILS % (AUTO) 64.7 % (42-75); PRE OP HEMATOCRIT 43.3 % (35.0-45.0); PRE OP HEMOGLOBIN 14.7 g/dL (12.0-16.0); PRE OP PLATELET COUNT 161 X10'3 (140-440); RED CELL DISTRIBUTION WIDTH 14.9 % (11.5-14.5)
[2021-10-15 12:54] LABS: ALBUMIN 3.8 G/DL (3.4-5.0); ALKALINE PHOSPHATASE 131 IU/L (46-116); BLOOD UREA NITROGEN 10 MG/DL (7-18); BUN/CREATININE RATIO 16.4 (6.6-38.0); CALCIUM 9.1 MG/DL (8.5-10.1); CHLORIDE 103 MMOL/L (99-107); CREATININE 0.61 MG/DL (0.40-0.90); PRE OP ALT 37 U/L (30-65); PRE OP ANION GAP 5 (8-16); PRE OP AST 28 U/L (10-37); PRE OP BILIRUB, TOTAL 0.3 MG/DL (0.0-1.0); PRE OP GLUCOSE 79 MG/DL (70-104); PRE OP POTASSIUM 4.5 MMOL/L (3.4-5.1); PRE OP SODIUM 141 MMOL/L (135-145); TOTAL CARBON DIOXIDE 33.2 MMOL/L (24-32); TOTAL PROTEIN 7.6 G/DL (6.4-8.2); eGFR > 90 ML/MIN
[~2021-10-23] VITALS: Ht 175.3 cm; Wt 97.5 kg
[2021-10-23] VITALS (7 sets, daily range): BP systolic 127–139; BP diastolic 59–67
[~2021-10-23 05:25] MED LIST changes: -ASPI81TA52 PO; +BUSP5TAB3 PO; +DOXY-1 PO; -ELBA1TAB PO; +IBUP-1986 PO; -NALT50TA PO; +NIFE-58 PO; -OMEP-50 PO; +OMEP20CA16 PO; +ringers solution, lacted 1,000 ML IV SCH
[2021-10-23] MEDS ORDERED: famotidine 20mg tablet PO ONE (05:30)
[2021-10-23] MEDS ORDERED: LIDOcaine 1% (10mg/ml) 2ml vial ONE (05:48)
[2021-10-23] MEDS ORDERED: cloNIDine hcl/PF 100mcg/ml inj ONE (07:09)
[2021-10-23] MEDS ORDERED: fentaNYL/PF 50MCG/1 ML 2ML syringe ONE (07:11)
[2021-10-23] MEDS ORDERED: midazolam 1 mg/ML 2ml injection ONE (07:12)
[2021-10-23] MEDS ORDERED: triamcinolone acetonide 40mg/ml inj IM ONE (07:25)
[2021-10-23] MEDS ORDERED: triamcinolone acetonide 40mg/ml inj ONE (07:29)
[2021-10-23] MEDS ORDERED: BUPIVAcaine/PF 2.5mg/ml (0.25%) 10ml vial ONE (07:29)
--- NOTE | 2021-10-23 07:37 | NUR ---
Received from OR via [facility] , accompanied by Anesthesiologist URVASHI and report given by Anesthesiolgist. PATIENT WITH 20G PIV IN RIGHT UE RUNNIG LR AT 100. ANTERIOR LEFT SHOULDER WITH BANDAID PRESNT THAT IS CDI. PATIENT WITH 02 MASK ON WITH 98% SATURATIONS ON 10L. DENIES PAIN. + CAP REFILL AND RADIAL PULSE IS PRESENT. Addendum: 10/23/21 at 0751 by Carlo Serrato RN, RN Amended: Links added.
[2021-10-23] MEDS ORDERED: ipratropium/albuterol 3ml nebule NEB PRN (08:05)
[2021-10-23] MEDS ORDERED: HYDROcodone/acetaminophen 10/325mg tab PO PRN (08:10)
--- NOTE | 2021-10-23 08:37 | NUR ---
ALL DISCHARGE CRITERIA HAS BEEN MET. VSS, PAIN AT A TOLERABLE LEVEL ABLE TO SAFELY AMBULATE AND TRANSFER SELF. IV TAKEN OUT WITHOUT ANY COMPLICATIONS. ALL DISCHARGE INSTRUCTIONS COVERED WITH PATIENT AND ALL QUESTIONS ANSWERED. PATIENT TAKEN OUT VIA WHEELCHAIR TO PERSONAL VEHICLE WHERE FAMILY/FRIEND DROVE PATIENT HOME. INSTRUCTED AND PATIENT DEMONSTRATED PROPER USAGE OF INCENTIVE SPIROMETRY. STATES THAT SHE WILL COMPLY WITH USING THIS AT HOME. ALSO ENCOURAGED TO DECREASE IF NOT QUIT SMOKING WHILE HEALING AND AFTER. BREATHING RX GIVEN PRIOR TO DC. Addendum: 10/23/21 at 0905 by Carlo Serrato RN, RN Amended: Links added.
== END 2021-10-23 08:37 | disposition home or self-care (01) ==
LOC: PAS 05:25
PROVIDERS: ATTEND Orthopaedic Surgery
DX: M24.612 Ankylosis, left shoulder (principal); M75.02 Adhesive capsulitis of left shoulder; I10 Essential (primary) hypertension; M81.0 Age-related osteoporosis without current pathological fracture; J44.9 Chronic obstructive pulmonary disease, unspecified; F32.9 Major depressive disorder, single episode, unspecified; F41.9 Anxiety disorder, unspecified; G89.18 Other acute postprocedural pain; K74.60 Unspecified cirrhosis of liver; F17.210 Nicotine dependence, cigarettes, uncomplicated; Z20.822 Contact with and (suspected) exposure to COVID-19; Z79.899 Other long term (current) drug therapy; Z96.612 Presence of left artificial shoulder joint; Z72.89 Other problems related to lifestyle; Z86.19 Personal history of other infectious and parasitic diseases; Z98.890 Other specified postprocedural states
CPT/HCPCS: 20610; 23700; 36415; 64415; 76942; 80053; 82948; 85025; 93005; 94640; 94760; J0735; J2250; J3010; J3301; J3490; J7120; U0003; U0005; Z7506; Z7512; A4565; A4618

== ENCOUNTER 2022-04-19 10:02 | Emergency (ER) | payer MEDICAID ==
[~2022-04-19] VITALS: Ht 172.7 cm; Wt 104.5 kg
[~2022-04-19 10:02] MED LIST changes: -ringers solution, lacted 1,000 ML IV SCH
[2022-04-19 10:20] VITALS: BP 148/6
[2022-04-19] MEDS ORDERED: LIDOcaine 5% patch TP ONE (11:45)
[2022-04-19] MEDS ORDERED: ketorolac tromethamine 15mg/ml inj. IM ONE (11:45)
== END 2022-04-19 13:10 | disposition home or self-care (01) ==
LOC: ER 10:03
DX: S20.212A Contusion of left front wall of thorax, initial encounter (principal); S40.022A Contusion of left upper arm, initial encounter; S80.02XA Contusion of left knee, initial encounter; I10 Essential (primary) hypertension; J44.9 Chronic obstructive pulmonary disease, unspecified; G89.29 Other chronic pain; F12.90 Cannabis use, unspecified, uncomplicated; W01.0XXA Fall on same level from slipping, tripping and stumbling without subsequent striking against object, initial encounter; Y93.89 Activity, other specified; Y92.89 Other specified places as the place of occurrence of the external cause; Y99.8 Other external cause status
CPT/HCPCS: 96372; 99284; J1885

== ENCOUNTER 2022-08-27 14:29 | Emergency (ER) | payer MEDICAID ==
[~2022-08-27] VITALS: Ht 170.2 cm; Wt 100.0 kg
[2022-08-27 16:01] LABS: ALANINE AMINOTRANSFERASE 41 U/L (12-78); ALBUMIN 3.8 G/DL (3.4-5.0); ALBUMIN/GLOBULIN RATIO 0.9 (1.1-1.5); ALKALINE PHOSPHATASE 124 IU/L (46-116); ANION GAP 7 (8-16); ASPARTATE AMINO TRANSFERASE 35 U/L (10-37); BILIRUBIN,TOTAL 0.4 MG/DL (0.1-1.0); BLOOD UREA NITROGEN 7 MG/DL (7-18); BUN/CREATININE RATIO 10.9 (6.6-38.0); CHLORIDE 103 MMOL/L (99-107); CREATININE 0.64 MG/DL (0.40-0.90); GLUCOSE 129 MG/DL (70-104); SODIUM 140 MMOL/L (135-145); TOTAL CARBON DIOXIDE 29.9 MMOL/L (24-32); eGFR > 90 ML/MIN
[2022-08-27 16:02] LABS: POTASSIUM 4.4 MMOL/L (3.5-5.1)
[2022-08-27] MEDS ORDERED: ipratropium/albuterol 3ml nebule NEB PRN (16:15)
--- NOTE | 2022-08-27 16:15 | NUR ---
Obtained verbal order for doris barragan for a duo neb inhaler once now for patient due to SOB and increased work of breathing with a o2 sat of 96%.
[2022-08-27] MEDS ORDERED: albuterol 2.5 MG/3 ML nebule ONE (16:52)
[2022-08-27] MEDS ORDERED: albuterol 2.5 MG/3 ML nebule CONTNEB PRN ×2 (17:00→20:50)
[2022-08-27 17:02] LABS: BASOPHILS % (AUTO) 0.5 % (0-1); EOSINOPHILS % (AUTO) 0.4 % (0-6); HEMATOCRIT 42.4 % (35.0-45.0); LYMPHOCYTES # (AUTO) 0.9 X10'3 (1.1-4.8); LYMPHOCYTES % (AUTO) 10.5 % (21-51); MEAN CORPUSCULAR HEMOGLOBIN 30.9 PG (27.0-31.0); MEAN CORPUSCULAR VOLUME 93.6 FL (78-98); MEAN PLATELET VOLUME 10.8 FL (7.4-10.4); MONOCYTES # (AUTO) 0.4 X10'3 (0-0.9); MONOCYTES % (AUTO) 4.6 % (2-12); PLATELET COUNT 149 X10'3 (140-440); RED BLOOD COUNT 4.52 X10'6 (4.20-5.60); RED CELL DISTRIBUTION WIDTH 14.9 % (11.5-14.5); WHITE BLOOD COUNT 8.4 X10'3 (4.5-11.0)
[2022-08-27 18:29] VITALS: BP 116/67
--- NOTE | 2022-08-27 19:27 | NUR ---
pt up to bathroom, sob with activity, breathing improved after rest
--- NOTE | 2022-08-27 20:31 | NUR ---
ambulated pt around unit on room air, sat 91, hr 110, Dr Mccallum notified, pt wants to go home
--- NOTE | 2022-08-27 20:49 | NUR ---
pt's gown and ekg leads on bed, with no pt in room, Dr Mccallum notified
[2022-08-27] MEDS ORDERED: PRED10TA23 PO (20:54)
[2022-08-28] MEDS ORDERED: OXYC1TAB17 PO (15:09)
[2022-08-28] MEDS ORDERED: NICO-687 TOP (15:09)
[2022-08-28] MEDS ORDERED: FLUT1BLS4 PO (15:09)
[2022-08-28] MEDS ORDERED: CHOL10008 PO (15:09)
[2022-08-28] MEDS ORDERED: NIFE30TA95 PO (15:09)
[2022-08-28] MEDS ORDERED: LISI40TA13 PO (15:09)
[2022-08-28] MEDS ORDERED: DICL75TA28 PO (15:09)
[2022-08-28] MEDS ORDERED: GABA-534 PO ×2 (15:09)
[2022-08-28] MEDS ORDERED: DULO60CA65 PO (15:09)
[2022-08-28] MEDS ORDERED: LISI30TA4 PO (15:09)
[2022-08-28] MEDS ORDERED: HYDR12.55 PO (15:09)
== END 2022-08-27 20:57 | disposition left against medical advice (07) ==
LOC: ER 14:30
DX: J45.901 Unspecified asthma with (acute) exacerbation (principal); Z20.822 Contact with and (suspected) exposure to COVID-19; I10 Essential (primary) hypertension; J44.9 Chronic obstructive pulmonary disease, unspecified; G89.29 Other chronic pain; Z87.81 Personal history of (healed) traumatic fracture; Z79.899 Other long term (current) drug therapy
CPT/HCPCS: 36415; 71046; 80053; 83605; 83880; 85025; 87040; 87502; 87503; 87635; 99285; C9803; 94640; 94760

== ENCOUNTER 2022-08-28 12:56 | Inpatient (IN) | payer MEDICAID ==
[~2022-08-28] VITALS: Ht 170.2 cm; Wt 100.0 kg
[~2022-08-28 12:56] MED LIST changes: +PRED10TA23 PO
[2022-08-28] MEDS ORDERED: methylPREDNISolone sod succ 125mg/2ml vial IV ONE (13:15)
[2022-08-28] MEDS ORDERED: albuterol 2.5 MG/3 ML nebule CONTNEB PRN (13:15)
[2022-08-28] MEDS ORDERED: magnesium 2GM in 50ml NS 50 ML IV ONE (13:15)
[2022-08-28 13:52] LABS: BASOPHILS % (AUTO) 0.4 % (0-1); EOSINOPHILS # (AUTO) 0.5 X10'3 (0-0.9); EOSINOPHILS % (AUTO) 4.3 % (0-6); HEMATOCRIT 46.8 % (35.0-45.0); HEMOGLOBIN 15.4 g/dl (12.0-16.0); LYMPHOCYTES # (AUTO) 1.8 X10'3 (1.1-4.8); LYMPHOCYTES % (AUTO) 16.4 % (21-51); MEAN CORPUSCULAR HEMOGLOBIN 31.2 PG (27.0-31.0); MEAN CORPUSCULAR VOLUME 94.5 FL (78-98); MEAN PLATELET VOLUME 11.3 FL (7.4-10.4); MONOCYTES # (AUTO) 0.9 X10'3 (0-0.9); MONOCYTES % (AUTO) 8.4 % (2-12); NEUTROPHILS # (AUTO) 7.6 X10'3 (1.8-7.7); NEUTROPHILS % (AUTO) 70.5 % (42-75); PLATELET COUNT 162 X10'3 (140-440); RED BLOOD COUNT 4.95 X10'6 (4.20-5.60); WHITE BLOOD COUNT 10.8 X10'3 (4.5-11.0)
[2022-08-28 14:06] LABS: ALANINE AMINOTRANSFERASE 45 U/L (12-78); ALBUMIN 3.9 G/DL (3.4-5.0); ALBUMIN/GLOBULIN RATIO 0.9 (1.1-1.5); ALKALINE PHOSPHATASE 127 IU/L (46-116); ANION GAP 8 (8-16); ASPARTATE AMINO TRANSFERASE 30 U/L (10-37); BILIRUBIN,TOTAL 0.5 MG/DL (0.1-1.0); BLOOD UREA NITROGEN 8 MG/DL (7-18); BUN/CREATININE RATIO 12.7 (6.6-38.0); CHLORIDE 102 MMOL/L (99-107); CREATININE 0.63 MG/DL (0.40-0.90); GLUCOSE 112 MG/DL (70-104); POTASSIUM 3.6 MMOL/L (3.5-5.1); SODIUM 141 MMOL/L (135-145); TOTAL CARBON DIOXIDE 31.1 MMOL/L (24-32); TOTAL PROTEIN 8.1 G/DL (6.4-8.2); eGFR > 90 ML/MIN
[2022-08-28] MEDS ORDERED: HYDR12.55 PO (15:09)
[2022-08-28] MEDS ORDERED: CHOL10008 PO (15:09)
[2022-08-28] MEDS ORDERED: LISI30TA4 PO (15:09)
[2022-08-28] MEDS ORDERED: DULO60CA65 PO (15:09)
[2022-08-28] MEDS ORDERED: GABA-534 PO ×2 (15:09)
[2022-08-28] MEDS ORDERED: DICL75TA28 PO (15:09)
[2022-08-28] MEDS ORDERED: OXYC1TAB17 PO (15:09)
[2022-08-28] MEDS ORDERED: LISI40TA13 PO (15:09)
[2022-08-28] MEDS ORDERED: FLUT1BLS4 PO (15:09)
[2022-08-28] MEDS ORDERED: NICO-687 TOP (15:09)
[2022-08-28] MEDS ORDERED: NIFE30TA95 PO (15:09)
[2022-08-28] MEDS ORDERED: CefTRIAXone 2gm/D5W 50ml BAG 50 ML IV ONE (15:10)
[2022-08-28] MEDS ORDERED: potassium Cl 20 mEq SR tablet PO PRN ×2 (15:15)
[2022-08-28] MEDS ORDERED: magnesium Cl slow-release 64mg tablet PO PRN (15:15)
[2022-08-28] MEDS ORDERED: magnesium 4gm in 100ml NS 100 ML IV PRN (15:15)
[2022-08-28] MEDS ORDERED: morphine 2 MG/ML inj. syringe IV PRN (15:15)
[2022-08-28] MEDS ORDERED: potassium Cl 40MEQ/1/2NS 520ml 520 ML IV PRN (15:15)
[2022-08-28] MEDS ORDERED: acetaminophen 325mg tablet PO PRN ×2 (15:15)
[2022-08-28] MEDS ORDERED: ondansetron/PF 4mg/2ml inj IV PRN (15:15)
[2022-08-28] MEDS: CefTRIAXone 2gm/D5W 50ml BAG 50 ML IV SCH (15:20)
[2022-08-28 15:47] LABS: ABG BASE EXCESS 4.3 mmol/L (-2.0-2.0); ABG HCO3 30.2 mmol/L (22.0-26.0); ABG OXYGEN SATURATION 89.8 % (94-97); ABG PCO2 (T) 49.5 mmHg (32.0-45.0); ABG PO2 (T) 56.8 mmHg (75.0-100.0); ALLEN'S TEST POSITIVE; FCOHb 2.5 % (0.0-3.9); FMetHb 0.1 % (0.0-1.5); FO2Hb 87.5 % (94-97); PATIENT TEMPERATURE 36.9; TOTAL HEMOGLOBIN 15.3 G/dl (12.0-16.0)
[2022-08-28] MEDS ORDERED: albuterol 2.5 MG/3 ML nebule NEB SCH (16:00)
[2022-08-28 17:23] LABS: D-DIMER 0.66 MG/L FEU (0-0.50)
[2022-08-28] MEDS: heparin, porcine 5000 units/ml vial SQ SCH (19:36)
[2022-08-28] MEDS: methylPREDNISolone sod succ 125mg/2ml vial IV SCH (19:36)
[2022-08-28] MEDS: albuterol 2.5 MG/3 ML nebule NEB SCH ×2 (19:39→23:27)
--- NOTE | 2022-08-28 21:20 | NUR ---
Report was taken by insulation cupola charger. Patient to follow shortly.
[2022-08-28 21:30] VITALS: BP 168/79
[2022-08-28] MEDS: HYDROcodone/acetaminophen 5mg/325mg tablet PO PRN (22:21)
[2022-08-28] MEDS: temazepam 15mg capsule PO PRN (22:58)
[2022-08-29 02:25] VITALS: BP 163/61
[2022-08-29] MEDS: albuterol 2.5 MG/3 ML nebule NEB SCH ×5 (03:22→19:00)
[2022-08-29 06:23] LABS: BASOPHILS % (AUTO) 0.5 % (0-1); EOSINOPHILS % (AUTO) 0 % (0-6); HEMATOCRIT 44.8 % (35.0-45.0); HEMOGLOBIN 14.7 g/dl (12.0-16.0); LYMPHOCYTES # (AUTO) 0.5 X10'3 (1.1-4.8); LYMPHOCYTES % (AUTO) 5.1 % (21-51); MEAN CORPUSCULAR HEMOGLOBIN 30.9 PG (27.0-31.0); MEAN CORPUSCULAR HGB CONC 32.8 g/dL (33.0-36.5); MEAN CORPUSCULAR VOLUME 94.1 FL (78-98); MEAN PLATELET VOLUME 11.1 FL (7.4-10.4); MONOCYTES # (AUTO) 0.3 X10'3 (0-0.9); MONOCYTES % (AUTO) 3.1 % (2-12); NEUTROPHILS # (AUTO) 9.3 X10'3 (1.8-7.7); NEUTROPHILS % (AUTO) 91.3 % (42-75); PLATELET COUNT 144 X10'3 (140-440); RED BLOOD COUNT 4.76 X10'6 (4.20-5.60); RED CELL DISTRIBUTION WIDTH 14.8 % (11.5-14.5); WHITE BLOOD COUNT 10.2 X10'3 (4.5-11.0)
[2022-08-29 06:29] LABS: ALANINE AMINOTRANSFERASE 37 U/L (12-78); ALBUMIN 3.2 G/DL (3.4-5.0); ALBUMIN/GLOBULIN RATIO 0.8 (1.1-1.5); ALKALINE PHOSPHATASE 110 IU/L (46-116); ANION GAP 6 (8-16); ASPARTATE AMINO TRANSFERASE 23 U/L (10-37); BILIRUBIN,TOTAL 0.1 MG/DL (0.1-1.0); BLOOD UREA NITROGEN 15 MG/DL (7-18); BUN/CREATININE RATIO 26.8 (6.6-38.0); CHLORIDE 103 MMOL/L (99-107); CREATININE 0.56 MG/DL (0.40-0.90); GLUCOSE 148 MG/DL (70-104); POTASSIUM 4.8 MMOL/L (3.5-5.1); SODIUM 141 MMOL/L (135-145); TOTAL CARBON DIOXIDE 31.9 MMOL/L (24-32); TOTAL PROTEIN 7.3 G/DL (6.4-8.2); eGFR > 90 ML/MIN
--- NOTE | 2022-08-29 06:30 | NUR ---
Problems reprioritized. Patient report given, questions answered & plan of care reviewed with Aaron MARTÍNEZ.
[2022-08-29 06:49] VITALS: BP 164/75
[2022-08-29] MEDS: CefTRIAXone 2gm/D5W 50ml BAG 50 ML IV SCH (07:11)
[2022-08-29] MEDS: heparin, porcine 5000 units/ml vial SQ SCH ×2 (07:12→21:02)
[2022-08-29] MEDS: methylPREDNISolone sod succ 125mg/2ml vial IV SCH ×2 (07:12→21:01)
[2022-08-29 08:10] LABS: LARGE PLATELETS FEW; PLATELET ESTIMATE NORMAL
--- NOTE | 2022-08-29 08:58 | NUR ---
PAGER ID: [phone] MESSAGE: [id number]- CASTЕЛЕНА CAROLA- pt continuously coughing. ok to do covid test?- Aaron [phone]
[2022-08-29] MEDS: HYDROcodone/acetaminophen 5mg/325mg tablet PO PRN ×2 (09:53→17:39)
[2022-08-29] MEDS ORDERED: FLU VACC QS2022-23(6MOS UP)/PF 60 MCG/0.5 ML SYRINGE IMVAC ONE (11:00)
[2022-08-29 12:28] VITALS: BP 143/65
[2022-08-29] MEDS ORDERED: BUSP10TA10 PO (15:33)
[2022-08-29] MEDS: guaiFENesin/DM 10ml UD oral syrup PO SCH ×2 (15:49→20:59)
[2022-08-29] MEDS: benzonatate 100mg capsule PO SCH (15:49)
[2022-08-29] MEDS: nicotine 21mg patch - 24 hr TD SCH (16:56)
[2022-08-29 18:00] VITALS: BP 148/46
--- NOTE | 2022-08-29 18:05 | NUR ---
Problems reprioritized. Patient report given, questions answered & plan of care reviewed with TANYA Espinosa.
[2022-08-29] MEDS: budesonide 0.5mg/2ml UD nebule IH SCH (20:19)
[2022-08-29] MEDS ORDERED: ipratropium 0.5 MG/2.5ML nebule IH SCH (21:00)
[2022-08-29] MEDS: gabapentin 300mg capsule PO SCH (21:03)
[2022-08-29 22:00] VITALS: BP 163/65
[2022-08-29] MEDS: ipratropium/albuterol 3ml nebule NEB SCH (23:14)
[2022-08-30] MEDS: guaiFENesin/DM 10ml UD oral syrup PO SCH ×6 (00:30→20:35)
[2022-08-30] MEDS: benzonatate 100mg capsule PO SCH ×3 (00:32→16:26)
[2022-08-30] MEDS: HYDROcodone/acetaminophen 5mg/325mg tablet PO PRN ×3 (00:32→18:51)
[2022-08-30] MEDS: ipratropium/albuterol 3ml nebule NEB SCH ×6 (03:20→23:37)
[2022-08-30 06:00] VITALS: BP 153/78
--- NOTE | 2022-08-30 06:45 | NUR ---
Problems reprioritized. Patient report given, questions answered & plan of care reviewed with Mary Kay MARTÍNEZ.
[2022-08-30] MEDS: budesonide 0.5mg/2ml UD nebule IH SCH ×2 (07:15→19:42)
[2022-08-30 07:29] LABS: BASOPHILS # (AUTO) 0.1 X10'3 (0-0.2); BASOPHILS % (AUTO) 0.7 % (0-1); EOSINOPHILS % (AUTO) 0 % (0-6); HEMATOCRIT 42.6 % (35.0-45.0); HEMOGLOBIN 14.2 g/dl (12.0-16.0); LYMPHOCYTES # (AUTO) 0.7 X10'3 (1.1-4.8); LYMPHOCYTES % (AUTO) 4.8 % (21-51); MEAN CORPUSCULAR HEMOGLOBIN 31.1 PG (27.0-31.0); MEAN CORPUSCULAR HGB CONC 33.2 g/dL (33.0-36.5); MEAN CORPUSCULAR VOLUME 93.5 FL (78-98); MEAN PLATELET VOLUME 10.9 FL (7.4-10.4); MONOCYTES # (AUTO) 0.8 X10'3 (0-0.9); MONOCYTES % (AUTO) 5.8 % (2-12); NEUTROPHILS # (AUTO) 12.5 X10'3 (1.8-7.7); NEUTROPHILS % (AUTO) 88.7 % (42-75); PLATELET COUNT 175 X10'3 (140-440); RED BLOOD COUNT 4.56 X10'6 (4.20-5.60); RED CELL DISTRIBUTION WIDTH 14.9 % (11.5-14.5)
[2022-08-30 07:52] LABS: ALANINE AMINOTRANSFERASE 38 U/L (12-78); ALBUMIN 3.2 G/DL (3.4-5.0); ALBUMIN/GLOBULIN RATIO 0.8 (1.1-1.5); ALKALINE PHOSPHATASE 101 IU/L (46-116); ANION GAP 5 (8-16); ASPARTATE AMINO TRANSFERASE 22 U/L (10-37); BILIRUBIN,TOTAL 0.1 MG/DL (0.1-1.0); BLOOD UREA NITROGEN 15 MG/DL (7-18); CALCIUM 8.1 MG/DL (8.5-10.1); CHLORIDE 103 MMOL/L (99-107); GLUCOSE 114 MG/DL (70-104); POTASSIUM 4.6 MMOL/L (3.5-5.1); SODIUM 141 MMOL/L (135-145); eGFR > 90 ML/MIN
[2022-08-30] MEDS: nicotine 21mg patch - 24 hr TD SCH (08:13)
[2022-08-30] MEDS: methylPREDNISolone sod succ 125mg/2ml vial IV SCH ×2 (08:14→20:35)
[2022-08-30] MEDS: heparin, porcine 5000 units/ml vial SQ SCH ×2 (08:15→20:35)
[2022-08-30] MEDS: gabapentin 300mg capsule PO SCH ×2 (08:15→20:35)
[2022-08-30] MEDS: duloxetine 30mg CAPSULE.DR PO SCH (08:15)
[2022-08-30] MEDS: lisinopril 20mg tablet PO SCH (08:16)
[2022-08-30] MEDS: HYDROchlorothiazide 12.5mg capsule PO SCH (08:16)
[2022-08-30] MEDS: CefTRIAXone 2gm/D5W 50ml BAG 50 ML IV SCH (08:28)
[2022-08-30 10:00] VITALS: BP 131/48
[2022-08-30] MEDS ORDERED: FLU VACC QS2022-23(6MOS UP)/PF 60 MCG/0.5 ML SYRINGE IMVAC ONE (12:00)
--- NOTE | 2022-08-30 16:27 | NUR ---
pt very pleasant, continues to have cough however pt states she feels it is improving. pt ambulatory in room, independent with ADL's. Will continue to monitor pt
[2022-08-30 18:00] VITALS: BP 146/60
--- NOTE | 2022-08-30 18:04 | NUR ---
Problems reprioritized. Patient report given, questions answered & plan of care reviewed with LUCY MARTÍNEZ.
--- NOTE | 2022-08-30 18:53 | NUR ---
Patient in room ATA 340. I have received report from TANYA Muñiz and had the opportunity to ask questions and assume patient care.
[2022-08-30 22:00] VITALS: BP_SYST 140; BP_SYST 77; BP_DIAS 60; BP_DIAS 77
[2022-08-31] MEDS: benzonatate 100mg capsule PO SCH ×3 (00:07→15:25)
[2022-08-31] MEDS: guaiFENesin/DM 10ml UD oral syrup PO SCH ×6 (00:07→19:59)
[2022-08-31] MEDS: HYDROcodone/acetaminophen 5mg/325mg tablet PO PRN ×4 (00:53→19:59)
[2022-08-31] MEDS: ipratropium/albuterol 3ml nebule NEB SCH ×6 (03:26→22:30)
[2022-08-31 06:00] VITALS: BP 133/59
--- NOTE | 2022-08-31 06:08 | NUR ---
Problems reprioritized. Patient report given, questions answered & plan of care reviewed with TANYA MCKEON.
[2022-08-31 06:48] LABS: BASOPHILS % (AUTO) 0.3 % (0-1); EOSINOPHILS % (AUTO) 0 % (0-6); HEMATOCRIT 41.8 % (35.0-45.0); HEMOGLOBIN 13.9 g/dl (12.0-16.0); LYMPHOCYTES # (AUTO) 0.5 X10'3 (1.1-4.8); MEAN CORPUSCULAR HEMOGLOBIN 31.3 PG (27.0-31.0); MEAN CORPUSCULAR HGB CONC 33.3 g/dL (33.0-36.5); MEAN PLATELET VOLUME 11.7 FL (7.4-10.4); MONOCYTES # (AUTO) 0.3 X10'3 (0-0.9); MONOCYTES % (AUTO) 2.9 % (2-12); NEUTROPHILS # (AUTO) 11.2 X10'3 (1.8-7.7); NEUTROPHILS % (AUTO) 92.8 % (42-75); PLATELET COUNT 162 X10'3 (140-440); RED BLOOD COUNT 4.45 X10'6 (4.20-5.60); RED CELL DISTRIBUTION WIDTH 14.8 % (11.5-14.5)
[2022-08-31 06:58] LABS: ALANINE AMINOTRANSFERASE 39 U/L (12-78); ALBUMIN 3.2 G/DL (3.4-5.0); ALBUMIN/GLOBULIN RATIO 0.9 (1.1-1.5); ALKALINE PHOSPHATASE 94 IU/L (46-116); ANION GAP 7 (8-16); ASPARTATE AMINO TRANSFERASE 21 U/L (10-37); BILIRUBIN,TOTAL 0.2 MG/DL (0.1-1.0); BLOOD UREA NITROGEN 15 MG/DL (7-18); BUN/CREATININE RATIO 25.4 (6.6-38.0); CALCIUM 8.4 MG/DL (8.5-10.1); CHLORIDE 96 MMOL/L (99-107); CREATININE 0.59 MG/DL (0.40-0.90); GLUCOSE 162 MG/DL (70-104); POTASSIUM 4.2 MMOL/L (3.5-5.1); SODIUM 137 MMOL/L (135-145); TOTAL PROTEIN 6.9 G/DL (6.4-8.2); eGFR > 90 ML/MIN
[2022-08-31] MEDS: methylPREDNISolone sod succ 125mg/2ml vial IV SCH (07:01)
[2022-08-31] MEDS: nicotine 21mg patch - 24 hr TD SCH (07:01)
[2022-08-31] MEDS: CefTRIAXone 2gm/D5W 50ml BAG 50 ML IV SCH (07:03)
[2022-08-31] MEDS: HYDROchlorothiazide 12.5mg capsule PO SCH (07:04)
[2022-08-31] MEDS: gabapentin 300mg capsule PO SCH ×2 (07:04→19:59)
[2022-08-31] MEDS: duloxetine 30mg CAPSULE.DR PO SCH (07:04)
[2022-08-31] MEDS: lisinopril 20mg tablet PO SCH (07:05)
[2022-08-31] MEDS: heparin, porcine 5000 units/ml vial SQ SCH ×2 (07:07→20:00)
[2022-08-31] MEDS: budesonide 0.5mg/2ml UD nebule IH SCH ×2 (07:53→18:39)
--- NOTE | 2022-08-31 09:53 | NUR ---
O2 Sat at rest on room air: 89 % If below 89%: Recovery O2 Sat at rest on ___LPM:___%:___% via (mask/nasal cannula, etc..) No further documentation is necessary. If O2 Sat did not drop below 89% on room air,ambulate patient on room air. O2 Sat while ambulating on room air: 84% Recovery O2 Sat while ambulating on 3 LPM: 90 % No further documentation is necessary. If patient does not drop below 89% while ambulating, he/she does not qualify for home O2.
[2022-08-31 10:00] VITALS: BP 139/54
[2022-08-31] MEDS ORDERED: albuterol 2.5 MG/3 ML nebule NEB PRN (12:40)
[2022-08-31] MEDS: methylPREDNISolone sod succ/PF 40mg inj. IV SCH ×2 (13:41→19:59)
--- NOTE | 2022-08-31 16:42 | NUR ---
Patient is very pleasant. Primary RN performed O2 qualification test. Pt qualifies for home O2, MD aware. Pt independent with ADL's. Voided multiple times this shift and has 2 bowel movements. Will continue to monitor patient.
[2022-08-31 18:00] VITALS: BP 143/56
--- NOTE | 2022-08-31 18:13 | NUR ---
Problems reprioritized. Patient report given, questions answered & plan of care reviewed with sofia lin.
--- NOTE | 2022-08-31 18:20 | NUR ---
Patient in room ATA 340. I have received report from TANYA Muñiz and had the opportunity to ask questions and assume patient care.
--- NOTE | 2022-08-31 18:21 | NUR ---
Patient in room ATA 340. I have received report from TANYA Edwards and had the opportunity to ask questions and assume patient care.
[2022-08-31 22:00] VITALS: BP 159/73
[2022-08-31] MEDS: temazepam 15mg capsule PO PRN (22:09)
[2022-09-01] MEDS: guaiFENesin/DM 10ml UD oral syrup PO SCH ×6 (00:08→20:06)
[2022-09-01] MEDS: benzonatate 100mg capsule PO SCH ×3 (00:08→15:44)
[2022-09-01] MEDS: methylPREDNISolone sod succ/PF 40mg inj. IV SCH ×4 (01:55→22:39)
[2022-09-01] MEDS: ipratropium/albuterol 3ml nebule NEB SCH ×6 (03:29→23:08)
[2022-09-01 06:00] VITALS: BP 163/63
--- NOTE | 2022-09-01 06:09 | NUR ---
Problems reprioritized. Patient report given, questions answered & plan of care reviewed with TANYA Dover.
[2022-09-01 07:09] LABS: BASOPHILS % (AUTO) 0.1 % (0-1); EOSINOPHILS % (AUTO) 0 % (0-6); LYMPHOCYTES # (AUTO) 0.3 X10'3 (1.1-4.8); LYMPHOCYTES % (AUTO) 3.4 % (21-51); MEAN CORPUSCULAR HEMOGLOBIN 31.4 PG (27.0-31.0); MEAN CORPUSCULAR HGB CONC 33.4 g/dL (33.0-36.5); MEAN CORPUSCULAR VOLUME 93.9 FL (78-98); MEAN PLATELET VOLUME 10.1 FL (7.4-10.4); MONOCYTES # (AUTO) 0.2 X10'3 (0-0.9); MONOCYTES % (AUTO) 2.6 % (2-12); NEUTROPHILS # (AUTO) 8.8 X10'3 (1.8-7.7); NEUTROPHILS % (AUTO) 93.9 % (42-75); PLATELET COUNT 143 X10'3 (140-440); RED BLOOD COUNT 4.47 X10'6 (4.20-5.60); WHITE BLOOD COUNT 9.4 X10'3 (4.5-11.0)
[2022-09-01 07:21] LABS: ALANINE AMINOTRANSFERASE 47 U/L (12-78); ALBUMIN/GLOBULIN RATIO 0.9 (1.1-1.5); ALKALINE PHOSPHATASE 90 IU/L (46-116); ANION GAP 4 (8-16); ASPARTATE AMINO TRANSFERASE 29 U/L (10-37); BILIRUBIN,TOTAL 0.3 MG/DL (0.1-1.0); BLOOD UREA NITROGEN 21 MG/DL (7-18); BUN/CREATININE RATIO 33.9 (6.6-38.0); CALCIUM 8.1 MG/DL (8.5-10.1); CHLORIDE 99 MMOL/L (99-107); CREATININE 0.62 MG/DL (0.40-0.90); GLUCOSE 158 MG/DL (70-104); POTASSIUM 4.2 MMOL/L (3.5-5.1); SODIUM 138 MMOL/L (135-145); TOTAL CARBON DIOXIDE 35.4 MMOL/L (24-32); TOTAL PROTEIN 6.4 G/DL (6.4-8.2); eGFR > 90 ML/MIN
[2022-09-01] MEDS: budesonide 0.5mg/2ml UD nebule IH SCH ×2 (08:13→19:53)
[2022-09-01] MEDS: lisinopril 20mg tablet PO SCH (08:14)
[2022-09-01] MEDS: duloxetine 30mg CAPSULE.DR PO SCH (08:14)
[2022-09-01] MEDS: gabapentin 300mg capsule PO SCH ×2 (08:15→20:06)
[2022-09-01] MEDS: HYDROchlorothiazide 12.5mg capsule PO SCH (08:15)
[2022-09-01] MEDS: heparin, porcine 5000 units/ml vial SQ SCH ×2 (08:16→20:07)
[2022-09-01] MEDS: nicotine 21mg patch - 24 hr TD SCH (08:16)
[2022-09-01] MEDS: CefTRIAXone 2gm/D5W 50ml BAG 50 ML IV SCH (08:24)
[2022-09-01] MEDS: HYDROcodone/acetaminophen 5mg/325mg tablet PO PRN ×2 (09:22→20:06)
[2022-09-01 10:00] VITALS: BP 150/57
[2022-09-01] MEDS ORDERED: iohexol 350MG/ML 100ml bottle IV ONE (13:01)
[2022-09-01 18:00] VITALS: BP 173/68
[2022-09-01 19:55] VITALS: BP 147/73
[2022-09-01 22:00] VITALS: BP 170/76
[2022-09-01] MEDS: temazepam 15mg capsule PO PRN (22:38)
[2022-09-02] MEDS: temazepam 15mg capsule PO PRN (00:24)
[2022-09-02] MEDS: benzonatate 100mg capsule PO SCH ×2 (00:24→08:46)
[2022-09-02] MEDS: guaiFENesin/DM 10ml UD oral syrup PO SCH ×4 (00:25→12:00)
[2022-09-02 00:27] VITALS: BP 142/54
[2022-09-02] MEDS: ipratropium/albuterol 3ml nebule NEB SCH ×3 (03:24→10:21)
[2022-09-02] MEDS: methylPREDNISolone sod succ/PF 40mg inj. IV SCH ×2 (04:11→08:46)
[2022-09-02] MEDS: HYDROcodone/acetaminophen 5mg/325mg tablet PO PRN (04:13)
[2022-09-02 06:00] VITALS: BP 131/54
--- NOTE | 2022-09-02 06:09 | NUR ---
Problems reprioritized. Patient report given, questions answered & plan of care reviewed with TANYA Frank.
--- NOTE | 2022-09-02 06:37 | NUR ---
Patient in room ATA 340. I have received report from Angeline MARTÍNEZ and had the opportunity to ask questions and assume patient care.
[2022-09-02 06:45] LABS: BASOPHILS % (AUTO) 0.2 % (0-1); EOSINOPHILS % (AUTO) 0 % (0-6); HEMATOCRIT 41.8 % (35.0-45.0); HEMOGLOBIN 13.8 g/dl (12.0-16.0); LYMPHOCYTES # (AUTO) 0.3 X10'3 (1.1-4.8); MEAN CORPUSCULAR HEMOGLOBIN 31.1 PG (27.0-31.0); MEAN CORPUSCULAR HGB CONC 33.1 g/dL (33.0-36.5); MEAN PLATELET VOLUME 10.8 FL (7.4-10.4); MONOCYTES # (AUTO) 0.3 X10'3 (0-0.9); MONOCYTES % (AUTO) 3.9 % (2-12); NEUTROPHILS # (AUTO) 7.2 X10'3 (1.8-7.7); NEUTROPHILS % (AUTO) 91.9 % (42-75); PLATELET COUNT 135 X10'3 (140-440); RED BLOOD COUNT 4.45 X10'6 (4.20-5.60); WHITE BLOOD COUNT 7.8 X10'3 (4.5-11.0)
[2022-09-02 07:38] LABS: ALANINE AMINOTRANSFERASE 67 U/L (12-78); ALBUMIN 2.9 G/DL (3.4-5.0); ALBUMIN/GLOBULIN RATIO 0.9 (1.1-1.5); ALKALINE PHOSPHATASE 82 IU/L (46-116); ANION GAP 2 (8-16); ASPARTATE AMINO TRANSFERASE 39 U/L (10-37); BILIRUBIN,TOTAL 0.3 MG/DL (0.1-1.0); BLOOD UREA NITROGEN 25 MG/DL (7-18); BUN/CREATININE RATIO 39.7 (6.6-38.0); CALCIUM 8.1 MG/DL (8.5-10.1); CHLORIDE 100 MMOL/L (99-107); CREATININE 0.63 MG/DL (0.40-0.90); GLUCOSE 159 MG/DL (70-104); MAGNESIUM 2.4 MG/DL (1.5-2.4); PHOSPHORUS 4.7 MG/DL (2.3-4.5); POTASSIUM 4.2 MMOL/L (3.5-5.1); SODIUM 137 MMOL/L (135-145); TOTAL CARBON DIOXIDE 34.9 MMOL/L (24-32); TOTAL PROTEIN 6.1 G/DL (6.4-8.2); eGFR > 90 ML/MIN
--- NOTE | 2022-09-02 08:40 | NUR ---
Initial; Pt admitted w/ COPD exacerbation per ERM. Currently on Heart Healthy diet w/ mostly 100% intake of meals meeting est needs at this time. LBM 09/01. No nutrition intervention implemented at this time, will continue to monitor. Recs: 1. Continue Heart Healthy diet as tolerated; consider liberalizing to Regular 2. Bowel care per rx 3. Weekly wts Addendum: 09/02/22 at [address] Amended: Links added.
[2022-09-02] MEDS: CefTRIAXone 2gm/D5W 50ml BAG 50 ML IV SCH (08:41)
[2022-09-02 08:46] VITALS: BP_SYST 131
[2022-09-02] MEDS: HYDROchlorothiazide 12.5mg capsule PO SCH (08:46)
[2022-09-02] MEDS: gabapentin 300mg capsule PO SCH (08:46)
[2022-09-02] MEDS: lisinopril 20mg tablet PO SCH (08:46)
[2022-09-02] MEDS: duloxetine 30mg CAPSULE.DR PO SCH (08:47)
[2022-09-02] MEDS ORDERED: gabapentin capsule PO (08:50)
[2022-09-02] MEDS ORDERED: CEFD300C3 PO (08:50)
[2022-09-02] MEDS ORDERED: LACT1CAP26 PO (08:50)
[2022-09-02] MEDS: nicotine 21mg patch - 24 hr TD SCH (08:52)
[2022-09-02] MEDS ORDERED: PRED10TA23 PO (08:52)
[2022-09-02] MEDS: heparin, porcine 5000 units/ml vial SQ SCH (08:52)
[2022-09-02 10:08] LABS: LARGE PLATELETS FEW; PLATELET ESTIMATE DECREASED
[2022-09-02] MEDS ORDERED: FLU VACC QS2022-23(6MOS UP)/PF 60 MCG/0.5 ML SYRINGE IMVAC ONE (11:00)
--- NOTE | 2022-09-02 11:04 | NUR ---
O2 Sat at rest on room air:__90_% If below 89%: Recovery O2 Sat at rest on __2_LPM:___%:_92__% via NC (mask/nasal cannula, etc..) No further documentation is necessary. If O2 Sat did not drop below 89% on room air,ambulate patient on room air. O2 Sat while ambulating on room air:__85_% Recovery O2 Sat while ambulating on _2__LPM:__92_% No further documentation is necessary. If patient does not drop below 89% while ambulating, he/she does not qualify for home O2.
--- NOTE | 2022-09-02 12:51 | NUR ---
patient up and about in room ambulated in hallway and desat to 85%, recovered with 02 /2L O2 template filled in for patient qualifying for home O@. O2 delivered. All DC instructions given to patient. patient DC home with O2 in private car with friend in stable condition 1230hrs
== END 2022-09-02 12:40 | disposition home or self-care (01) | DRG 140 ==
LOC: ER 12:56 → ED HOLD 15:18 → SUR 3N 21:30
PROVIDERS: ADMIT Internal Medicine; ATTEND Internal Medicine
PROC: B32T1ZZ Computerized Tomography (CT Scan) of Left Pulmonary Artery using Low Osmolar Contrast (ICD-10-PCS; principal; 2022-09-01)
PROC: B3201ZZ Computerized Tomography (CT Scan) of Thoracic Aorta using Low Osmolar Contrast (ICD-10-PCS; 2022-09-01)
PROC: B32S1ZZ Computerized Tomography (CT Scan) of Right Pulmonary Artery using Low Osmolar Contrast (ICD-10-PCS; 2022-09-01)
DX: J44.1 Chronic obstructive pulmonary disease with (acute) exacerbation (principal); J96.21 Acute and chronic respiratory failure with hypoxia; Z20.822 Contact with and (suspected) exposure to COVID-19; F17.200 Nicotine dependence, unspecified, uncomplicated; G89.4 Chronic pain syndrome; I10 Essential (primary) hypertension; R79.89 Other specified abnormal findings of blood chemistry; Z28.21 Immunization not carried out because of patient refusal; Z71.6 Tobacco abuse counseling
CPT/HCPCS: 36415; 36600; 71045; 71275; 80053; 82803; 83605; 83735; 84100; 85008; 85018; 85025; 85379; 87040; 87081; 87635; 90686; 93005; 94640; 94760; 96365; 96375; 99285; A4615; A7015; G0378; J0696; J1644; J2920; J2930; J3475; J3490; Q9967

== ENCOUNTER 2023-05-15 09:52 | Inpatient (IN) | payer MEDICARE, MEDICAID ==
[~2023-05-15] VITALS: Ht 172.7 cm; Wt 91.6 kg
[~2023-05-15 09:52] MED LIST changes: +BUSP10TA10 PO; -BUSP5TAB3 PO; -CALC-642 PO; -DOXY-1 PO; -DULO20CA18 PO; +DULO60CA65 PO; +FLUT1BLS4 PO; -GABA-530 PO; -HYDR-3972 PO; +HYDR12.55 PO; -IBUP-1986 PO; +LACT1CAP26 PO; -LISI20TA28 PO; +LISI40TA13 PO; -LOSA25TA96 PO; +NICO-687 TOP; -NIFE-58 PO; +OXYC1TAB17 PO; -PRED10TA23 PO; +gabapentin capsule PO
[2023-05-15 11:11] LABS: BASOPHILS # (AUTO) 0.1 X10'3 (0-0.2); BASOPHILS % (AUTO) 0.6 % (0-1); EOSINOPHILS # (AUTO) 0.2 X10'3 (0-0.9); EOSINOPHILS % (AUTO) 1.8 % (0-6); HEMATOCRIT 48.3 % (35.0-45.0); HEMOGLOBIN 16.2 g/dl (12.0-16.0); LYMPHOCYTES # (AUTO) 1.3 X10'3 (1.1-4.8); LYMPHOCYTES % (AUTO) 10.4 % (21-51); MEAN CORPUSCULAR HEMOGLOBIN 30.9 PG (27.0-31.0); MEAN CORPUSCULAR HGB CONC 33.5 g/dL (33.0-36.5); MEAN CORPUSCULAR VOLUME 92.4 FL (78-98); MEAN PLATELET VOLUME 10.4 FL (7.4-10.4); MONOCYTES # (AUTO) 0.9 X10'3 (0-0.9); MONOCYTES % (AUTO) 7.4 % (2-12); NEUTROPHILS # (AUTO) 10.1 X10'3 (1.8-7.7); NEUTROPHILS % (AUTO) 79.8 % (42-75); PLATELET COUNT 205 X10'3 (140-440); RED BLOOD COUNT 5.23 X10'6 (4.20-5.60); RED CELL DISTRIBUTION WIDTH 15.1 % (11.5-14.5); WHITE BLOOD COUNT 12.7 X10'3 (4.5-11.0)
[2023-05-15 11:31] LABS: URINE HCG NEGATIVE (NEG)
[2023-05-15 11:31] LABS: ALANINE AMINOTRANSFERASE 30 U/L (12-78); ALBUMIN 3.9 G/DL (3.4-5.0); ALKALINE PHOSPHATASE 125 IU/L (46-116); ANION GAP 9 (8-16); ASPARTATE AMINO TRANSFERASE 32 U/L (10-37); BILIRUBIN,TOTAL 1.1 MG/DL (0.1-1.0); BLOOD UREA NITROGEN 9 MG/DL (7-18); BUN/CREATININE RATIO 14.3 (10.0-20.0); CALCIUM 9.1 MG/DL (8.5-10.1); CHLORIDE 97 MMOL/L (99-107); CREATININE 0.63 MG/DL (0.40-0.90); GLUCOSE 120 MG/DL (70-104); POTASSIUM 3.9 MMOL/L (3.5-5.1); SODIUM 133 MMOL/L (135-145); TOTAL CARBON DIOXIDE 26.7 MMOL/L (24-32); eCRCL 93 ML/MIN; eGFR > 90 ML/MIN
[2023-05-15 11:44] LABS: ETHANOL < 10 MG/DL (<10)
[2023-05-15 11:45] LABS: URINE AMPHETAMINE SCREEN POSITIVE (Neg); URINE BARBITUATE SCREEN NEGATIVE (Neg); URINE BENZODIAZEPINES SCREEN NEGATIVE (Neg); URINE CANNABINOID SCREEN POSITIVE (Neg); URINE COCAINE SCREEN POSITIVE (Neg); URINE METHADONE SCREEN NEGATIVE (Neg); URINE OPIATE SCREEN NEGATIVE (Neg); URINE PHENCYCLIDINE SCREEN NEGATIVE (Neg)
[2023-05-15] MEDS ORDERED: albuterol 2.5 MG/3 ML nebule NEB ONE (12:35)
[2023-05-15 12:57] VITALS: PULSE 86; RESP 22; O2SAT 96
[2023-05-15 13:03] VITALS: PULSE 88; RESP 20; O2SAT 98
[2023-05-15] MEDS ORDERED: FLUO40CA PO (13:38)
[2023-05-15] MEDS ORDERED: OXYC10TA47 PO (13:38)
[2023-05-15] MEDS ORDERED: LORA10TA7 PO (13:38)
[2023-05-15] MEDS ORDERED: BUDE10.2 INH (13:38)
[2023-05-15] MEDS ORDERED: ALBU18HF2 INH (13:38)
[2023-05-15] MEDS ORDERED: NIFE-73 PO (13:38)
[2023-05-15] MEDS ORDERED: MULT-1074 PO (13:38)
[2023-05-15] MEDS ORDERED: BUSP10TA11 PO (13:38)
[2023-05-15] MEDS ORDERED: GABA-535 PO ×2 (13:38)
--- NOTE | 2023-05-15 13:45 | NUR ---
Patient c/o feeling suicidal if my life doesn't get better. Patient states one of her sons stopped talking to her a couple of months ago and her other son is busy with his life. Patient lives with a roommate who works. Patient stated she went back to doing drugs. States she snorted cocaine and meth. Patient is also c/o diarrhea. Patient is calm and cooperative. Continue to monitor.
[2023-05-15 14:00] LABS: BILIRUBIN,URINE SMALL (Neg); CLARITY,URINE CLOUDY (Clear); COLOR,URINE YELLOW (Yellow); GLUCOSE, URINE NEGATIVE (Neg); KETONES,URINE >=80 mg/dl (Neg); LEUKOCYTE ESTERASE ,URINE NEGATIVE (Neg); NITRITES, URINE NEGATIVE (Neg); OCCULT BLOOD,URINE SMALL (Neg); PROTEIN,URINE 30 mg/dl (Neg); UROBILINOGEN,URINE 0.2 E.U/dL (0.2-1.0)
[2023-05-15 14:05] LABS: UA COLLECTION TYPE VOIDED
[2023-05-15 14:16] LABS: MUCUS STRANDS MANY /LPF (Neg); SQUAMOUS EPITHELIAL CELL,UR MANY /LPF (FEW)
[2023-05-15 14:17] LABS: BACTERIA,URINE 2+ /HPF (Neg); RBC,URINE 0-2 /HPF (0-2); TRANSITIONAL EPI CELLS,URINE FEW /HPF; WBC,URINE 0-4 /HPF (0-4)
[2023-05-15] MEDS: hydrOXYzine 25 MG tablet PO PRN (14:33)
--- NOTE | 2023-05-15 14:52 | NUR ---
trace sent pt packet to [facility]
[2023-05-15] MEDS ORDERED: loperamide 2mg capsule PO PRN (15:35)
--- NOTE | 2023-05-15 15:40 | NUR ---
Gianna SUN, evaluating patient. No distress observed. Continue to monitor.
--- NOTE | 2023-05-15 17:08 | NUR ---
Gianna SUN, placing patient on a 5150 and advising patient. No distress observed. Continue to monitor.
[2023-05-15 18:59] VITALS: PULSE 83; RESP 16; O2SAT 96
[2023-05-15] MEDS: busPIRone 5mg tablet PO SCH (20:13)
[2023-05-15] MEDS: oxyCODONE IR 5mg (immed. release) tablet PO PRN (20:14)
[2023-05-15] MEDS: budesonide 0.5mg/2ml UD nebule IH SCH (20:43)
[2023-05-15 20:44] VITALS: PULSE 74; RESP 16; O2SAT 94
[2023-05-15 20:49] VITALS: PULSE 77; RESP 16
--- NOTE | 2023-05-15 21:43 | NUR ---
The patient moved to bed 20 from the main ER. She was very cooperative with the transfer. She continues to feel depressed and feel suicidal. She has had her HS medications. She has some faint expiratory wheezes bilateral both lobes.
--- NOTE | 2023-05-15 22:46 | NUR ---
The patient appears to be sleeping
[2023-05-16] VITALS (7 sets, daily range): BP systolic 117–120; BP diastolic 54–67; PULSE 74–104; RESP 16–18; TEMP 97.6–97.8; O2SAT 92–98
--- NOTE | 2023-05-16 00:59 | NUR ---
The patient is resting on her bed. She has been restless. Up to use the bathroom once.
--- NOTE | 2023-05-16 03:01 | NUR ---
The patient appears to be sleeping
--- NOTE | 2023-05-16 05:10 | NUR ---
The patient up to use the bathroom but is now back in bed
[2023-05-16] MEDS: busPIRone 5mg tablet PO SCH ×2 (07:34→13:29)
[2023-05-16] MEDS: HYDROchlorothiazide 12.5mg capsule PO SCH (07:34)
[2023-05-16] MEDS: gabapentin 400mg capsule PO SCH ×2 (07:34→13:29)
[2023-05-16] MEDS: multivitamins, therapeutics tablet PO SCH (07:34)
[2023-05-16] MEDS: loratadine 10mg tablet PO SCH (07:34)
[2023-05-16] MEDS: NIFEdipine XL 30mg tablet PO SCH (07:34)
[2023-05-16] MEDS: lisinopril 20mg tablet PO SCH (07:35)
[2023-05-16] MEDS: oxyCODONE IR 5mg (immed. release) tablet PO PRN ×2 (07:45→21:08)
[2023-05-16] MEDS ORDERED: FLUoxetine 20mg capsule PO SCH (08:00)
[2023-05-16] MEDS: albuterol 2.5 MG/3 ML nebule NEB SCH (09:02)
[2023-05-16] MEDS: budesonide 0.5mg/2ml UD nebule IH SCH ×2 (09:02→20:31)
[2023-05-16] MEDS ORDERED: acetaminophen 325mg tablet PO PRN ×2 (09:55)
[2023-05-16] MEDS ORDERED: loperamide 2mg capsule PO PRN (09:55)
[2023-05-16] MEDS ORDERED: magnesium hydroxide 30ml (MOM) UD suspension PO PRN (09:55)
[2023-05-16] MEDS ORDERED: mag hydrox/Alum hydrox/simeth 30ml oral suspension PO PRN (09:55)
[2023-05-16] MEDS: NICOTINE POLACRILEX 2 MG LOZENGE BC PRN ×2 (13:34→17:14)
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
[2023-05-16] MEDS ORDERED: OXYcodone immediate-release 10MG tablet PO PRN (17:12)
[2023-05-16] MEDS: hydrOXYzine 25 MG tablet PO PRN (20:55)
[2023-05-16] MEDS: busPIRone 15mg tablet PO SCH (20:55)
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
[2023-05-17 07:38] LABS: CHOL/HDL RATIO 3.6 (0.00-4.99); CHOLESTEROL 147 MG/DL (0-200); HDL CHOLESTEROL 41 MG/DL (35-60); LDL CHOLESTEROL 84 MG/DL (50-100); TRIGLYCERIDES 90 MG/DL (20-135)
[2023-05-17 07:42] LABS: HEMOGLOBIN A1C 5.7 % (4.5-6.2)
[2023-05-17 08:00] VITALS: BP 114/51; PULSE 55; RESP 14; TEMP 97.8; O2SAT 93
[2023-05-17] MEDS: NIFEdipine XL 30mg tablet PO SCH (08:36)
[2023-05-17] MEDS: HYDROchlorothiazide 12.5mg capsule PO SCH (08:36)
[2023-05-17] MEDS: multivitamins, therapeutics tablet PO SCH (08:36)
[2023-05-17] MEDS: ESCITALOPRAM OXALATE 5 MG TABLET PO SCH (08:37)
[2023-05-17] MEDS: loratadine 10mg tablet PO SCH (08:37)
[2023-05-17] MEDS: lisinopril 20mg tablet PO SCH (08:38)
[2023-05-17] MEDS: gabapentin 400mg capsule PO SCH ×2 (08:39→13:54)
[2023-05-17] MEDS: busPIRone 15mg tablet PO SCH ×3 (08:42→20:28)
[2023-05-17] MEDS: nicotine 21mg patch - 24 hr TD SCH (08:42)
[2023-05-17] MEDS: budesonide 0.5mg/2ml UD nebule IH SCH ×2 (09:32→20:09)
--- NOTE | 2023-05-17 09:35 | NUR ---
Malnutrition consult: Pt reports 14-23 lb wt loss with decreased appetite/PO intake per malnutrition risk screen with RN. Most recent scaled wt hx in EMR is 100 kg 08/28/22, using current scaled wt of 86.6 kg this would be non-severe wt loss of 13% in ~9 months. Of note prior scaled wt hx ranges from 81.65-83.45 kg 02/19/21-09/21/18, patient's weight possibly just returning to baseline weight. Pt currently on a regular diet and eating well, documented with 100% PO intake of meals meeting estimated nutrient needs. Pt with no documented edema. Pt currently lacks a minimum of two criteria for malnutrition. Will continue to follow and monitor s/s of malnutrition. Addendum: 05/17/23 at [address] Amended: Links added.
[2023-05-17] MEDS: oxyCODONE IR 5mg (immed. release) tablet PO PRN ×2 (10:16→19:41)
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
[2023-05-17 19:00] VITALS: BP 143/54; PULSE 118; RESP 20; TEMP 98.2; O2SAT 92
[2023-05-17] MEDS: hydrOXYzine 25 MG tablet PO PRN (19:41)
[2023-05-17 20:09] VITALS: PULSE 73; RESP 16; O2SAT 96
[2023-05-17 20:17] VITALS: PULSE 91; RESP 18
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
[2023-05-18 07:00] VITALS: RESP 18; O2SAT 94
[2023-05-18] MEDS: NIFEdipine XL 30mg tablet PO SCH (07:36)
[2023-05-18] MEDS: lisinopril 20mg tablet PO SCH (07:37)
[2023-05-18] MEDS: loratadine 10mg tablet PO SCH (07:38)
[2023-05-18] MEDS: multivitamins, therapeutics tablet PO SCH (07:38)
[2023-05-18] MEDS: busPIRone 15mg tablet PO SCH ×3 (07:39→21:44)
[2023-05-18] MEDS: gabapentin 400mg capsule PO SCH ×2 (07:39→13:02)
[2023-05-18] MEDS: HYDROchlorothiazide 12.5mg capsule PO SCH (07:39)
[2023-05-18] MEDS: ESCITALOPRAM OXALATE 5 MG TABLET PO SCH (07:39)
[2023-05-18] MEDS: nicotine 21mg patch - 24 hr TD SCH (07:40)
[2023-05-18 08:00] VITALS: BP 108/53; PULSE 55; RESP 18; TEMP 97.6; O2SAT 94
[2023-05-18] MEDS: oxyCODONE IR 5mg (immed. release) tablet PO PRN ×2 (08:04→21:48)
[2023-05-18] MEDS: budesonide 0.5mg/2ml UD nebule IH SCH ×2 (11:34→20:23)
[2023-05-18] MEDS: hydrOXYzine 25 MG tablet PO PRN ×2 (13:42→22:49)
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
[2023-05-18 19:00] VITALS: RESP 18; O2SAT 94
[2023-05-18 20:00] VITALS: BP 130/61; PULSE 74; RESP 18; TEMP 97.6; O2SAT 94
[2023-05-18 20:17] VITALS: PULSE 81; RESP 18; O2SAT 93
[2023-05-19] VITALS (10 sets, daily range): BP systolic 112–171; BP diastolic 55–61; PULSE 56–82; RESP 16–21; TEMP 98–99.1; O2SAT 92–97
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
--- NOTE | 2023-05-19 05:46 | NUR ---
GIS PHYSICAL SCIENTIST documentation: I have reviewed and agree with all interventions, assessments performed and documented by Saleem KWON.
[2023-05-19] MEDS: nicotine 21mg patch - 24 hr TD SCH (07:51)
[2023-05-19] MEDS: gabapentin 400mg capsule PO SCH ×2 (07:51→12:59)
[2023-05-19] MEDS: HYDROchlorothiazide 12.5mg capsule PO SCH (07:51)
[2023-05-19] MEDS: ESCITALOPRAM OXALATE 5 MG TABLET PO SCH (07:52)
[2023-05-19] MEDS: oxyCODONE IR 5mg (immed. release) tablet PO PRN ×2 (07:52→18:01)
[2023-05-19] MEDS: NIFEdipine XL 30mg tablet PO SCH (07:53)
[2023-05-19] MEDS: lisinopril 20mg tablet PO SCH (07:53)
[2023-05-19] MEDS: busPIRone 15mg tablet PO SCH ×3 (07:54→20:16)
[2023-05-19] MEDS: multivitamins, therapeutics tablet PO SCH (07:54)
[2023-05-19] MEDS: loratadine 10mg tablet PO SCH (07:54)
[2023-05-19] MEDS: budesonide 0.5mg/2ml UD nebule IH SCH ×2 (07:56→19:44)
[2023-05-19] MEDS: albuterol 2.5 MG/3 ML nebule NEB SCH ×2 (08:02→16:55)
[2023-05-19] MEDS: hydrOXYzine 25 MG tablet PO PRN ×2 (11:47→20:16)
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
[2023-05-20] MEDS: oxyCODONE IR 5mg (immed. release) tablet PO PRN ×3 (04:46→18:28)
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
--- NOTE | 2023-05-20 05:34 | NUR ---
CONTRACTOR BROOMCORN THRESHING documentation: I have reviewed and agree with all interventions, assessments performed and documented by Saleem KWON.
[2023-05-20 07:00] VITALS: RESP 16; O2SAT 97
[2023-05-20 07:14] LABS: BASOPHILS # (AUTO) 0.1 X10'3 (0-0.2); BASOPHILS % (AUTO) 0.9 % (0-1); EOSINOPHILS # (AUTO) 0.3 X10'3 (0-0.9); EOSINOPHILS % (AUTO) 4.2 % (0-6); HEMATOCRIT 43.4 % (35.0-45.0); HEMOGLOBIN 14.5 g/dl (12.0-16.0); LYMPHOCYTES # (AUTO) 1.4 X10'3 (1.1-4.8); LYMPHOCYTES % (AUTO) 20.3 % (21-51); MEAN CORPUSCULAR HGB CONC 33.3 g/dL (33.0-36.5); MEAN CORPUSCULAR VOLUME 93.1 FL (78-98); MONOCYTES # (AUTO) 0.5 X10'3 (0-0.9); MONOCYTES % (AUTO) 7.9 % (2-12); NEUTROPHILS # (AUTO) 4.7 X10'3 (1.8-7.7); NEUTROPHILS % (AUTO) 66.7 % (42-75); PLATELET COUNT 144 X10'3 (140-440); RED BLOOD COUNT 4.66 X10'6 (4.20-5.60); RED CELL DISTRIBUTION WIDTH 14.5 % (11.5-14.5)
[2023-05-20 07:50] VITALS: BP 143/68; PULSE 68; RESP 18; TEMP 98; O2SAT 92
[2023-05-20 07:54] LABS: ALANINE AMINOTRANSFERASE 41 U/L (12-78); ALBUMIN 3.3 G/DL (3.4-5.0); ALBUMIN/GLOBULIN RATIO 0.9 (1.1-1.5); ALKALINE PHOSPHATASE 102 IU/L (46-116); ANION GAP 6 (8-16); ASPARTATE AMINO TRANSFERASE 26 U/L (10-37); BILIRUBIN,TOTAL 0.4 MG/DL (0.1-1.0); BLOOD UREA NITROGEN 15 MG/DL (7-18); CALCIUM 8.5 MG/DL (8.5-10.1); CHLORIDE 102 MMOL/L (99-107); FREE T4 (FREE THYROXINE) 1.03 NG/DL (0.73-1.40); GLUCOSE 97 MG/DL (70-104); POTASSIUM 4.2 MMOL/L (3.5-5.1); SODIUM 140 MMOL/L (135-145); TOTAL CARBON DIOXIDE 32.1 MMOL/L (24-32); TOTAL PROTEIN 6.8 G/DL (6.4-8.2); eCRCL 98 ML/MIN; eGFR > 90 ML/MIN
[2023-05-20] MEDS: nicotine 21mg patch - 24 hr TD SCH (08:51)
[2023-05-20] MEDS: multivitamins, therapeutics tablet PO SCH (08:52)
[2023-05-20] MEDS: gabapentin 400mg capsule PO SCH ×2 (08:52→12:06)
[2023-05-20] MEDS: HYDROchlorothiazide 12.5mg capsule PO SCH (08:53)
[2023-05-20] MEDS: busPIRone 15mg tablet PO SCH ×3 (08:53→20:23)
[2023-05-20] MEDS: NIFEdipine XL 30mg tablet PO SCH (08:53)
[2023-05-20] MEDS: lisinopril 20mg tablet PO SCH (08:53)
[2023-05-20] MEDS: loratadine 10mg tablet PO SCH (08:54)
[2023-05-20] MEDS: ESCITALOPRAM OXALATE 5 MG TABLET PO SCH (08:54)
[2023-05-20 11:52] LABS: LARGE PLATELETS FEW; PLATELET ESTIMATE NORMAL
[2023-05-20] MEDS: hydrOXYzine 25 MG tablet PO PRN ×2 (12:06→18:28)
--- NOTE | 2023-05-20 13:24 | NUR ---
Initial: Pt admit for MDD with SI. Currently on a regular diet and eating well, documented with average 94% PO intake of meals meeting estimated nutrient needs. LBM 05/19 per EMR. PRN bowel care available. No nutrition intervention implemented at this time. Will continue to follow and make recommendations as appropriate. Recommendations: 1) Continue regular diet 2) Continue routine MVI, consider adding routine Thiamine and Folic acid given EtOH hx 3) Bowel care PRN 4) Weekly scaled weights Addendum: 05/20/23 at [address] Amended: Links added.
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
--- NOTE | 2023-05-20 17:52 | NUR ---
STEM PROCESSING MACHINE OPERATOR documentation: I have reviewed all interventions and assessments performed and documented by DOYLE Garcia.
[2023-05-20 19:39] VITALS: BP 119/57; PULSE 75; RESP 16; TEMP 97.2; O2SAT 94
[2023-05-20 20:02] VITALS: PULSE 6; RESP 20; O2SAT 97
[2023-05-20] MEDS: budesonide 0.5mg/2ml UD nebule IH SCH (20:02)
[2023-05-20 20:08] VITALS: PULSE 67; RESP 16
[2023-05-20] MEDS ORDERED: traZODone 50mg tablet PO ONE (21:35)
[2023-05-21] VITALS (8 sets, daily range): BP systolic 143–161; BP diastolic 62–69; PULSE 68–73; RESP 16–20; TEMP 97.2–98.9; O2SAT 90–93
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
--- NOTE | 2023-05-21 04:40 | NUR ---
FINANCIAL ANALYST documentation: I have reviewed and agree with all interventions, assessments performed and documented by Pina Navas LVN.
[2023-05-21] MEDS: multivitamins, therapeutics tablet PO SCH (07:26)
[2023-05-21] MEDS: ESCITALOPRAM OXALATE 5 MG TABLET PO SCH (07:27)
[2023-05-21] MEDS: busPIRone 15mg tablet PO SCH ×3 (07:27→20:12)
[2023-05-21] MEDS: HYDROchlorothiazide 12.5mg capsule PO SCH (07:27)
[2023-05-21] MEDS: NIFEdipine XL 30mg tablet PO SCH (07:27)
[2023-05-21] MEDS: loratadine 10mg tablet PO SCH (07:27)
[2023-05-21] MEDS: gabapentin 400mg capsule PO SCH ×2 (07:27→12:57)
[2023-05-21] MEDS: lisinopril 20mg tablet PO SCH (07:28)
[2023-05-21] MEDS: oxyCODONE IR 5mg (immed. release) tablet PO PRN ×3 (07:29→20:23)
[2023-05-21] MEDS: nicotine 21mg patch - 24 hr TD SCH (07:30)
[2023-05-21] MEDS: hydrOXYzine 25 MG tablet PO PRN ×2 (09:28→18:56)
[2023-05-21] MEDS: albuterol 2.5 MG/3 ML nebule NEB SCH ×2 (10:19→19:45)
[2023-05-21] MEDS: budesonide 0.5mg/2ml UD nebule IH SCH ×2 (10:19→19:45)
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
[2023-05-22] VITALS (8 sets, daily range): BP systolic 95–140; BP diastolic 59–60; PULSE 72–75; RESP 16–18; TEMP 97.6–98.3; O2SAT 93–96
--- NOTE | 2023-05-22 04:56 | NUR ---
HOMOEOPATH documentation: I have reviewed and agree with all interventions, assessments performed and documented by Pina Navas LVN.
[2023-05-22] MEDS: budesonide 0.5mg/2ml UD nebule IH SCH ×2 (09:06→20:53)
[2023-05-22] MEDS: albuterol 2.5 MG/3 ML nebule NEB SCH ×2 (09:06→20:53)
[2023-05-22] MEDS: nicotine 21mg patch - 24 hr TD SCH (09:16)
[2023-05-22] MEDS: loratadine 10mg tablet PO SCH (09:17)
[2023-05-22] MEDS: HYDROchlorothiazide 12.5mg capsule PO SCH (09:17)
[2023-05-22] MEDS: busPIRone 15mg tablet PO SCH ×2 (09:17→13:55)
[2023-05-22] MEDS: ESCITALOPRAM OXALATE 5 MG TABLET PO SCH (09:17)
[2023-05-22] MEDS: NIFEdipine XL 30mg tablet PO SCH (09:18)
[2023-05-22] MEDS: gabapentin 400mg capsule PO SCH ×2 (09:18→13:55)
[2023-05-22] MEDS: multivitamins, therapeutics tablet PO SCH (09:18)
[2023-05-22] MEDS: lisinopril 20mg tablet PO SCH (09:19)
[2023-05-22] MEDS: oxyCODONE IR 5mg (immed. release) tablet PO PRN ×2 (09:20→18:06)
[2023-05-22] MEDS: hydrOXYzine 25 MG tablet PO PRN ×2 (13:55→20:45)
[2023-05-22] MEDS ORDERED: busPIRone 5mg tablet PO ONE (16:10)
--- NOTE | 2023-05-22 16:12 | NUR ---
Pt. complained of anxiety which was unrelieved by previously administered PRN Atarax 50mg. She was provided active listening and relaxation techniques were encouraged without effectiveness. This was endorsed to SHAHZAD Palafox and received orders to increase Buspar to 20mg TID and administer a one-time 5mg dose of Buspar now. Will continue to monitor pt. closely.
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
[2023-05-22] MEDS: busPIRone 5mg tablet PO SCH (20:45)
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
[2023-05-23 08:00] VITALS: BP 134/64; PULSE 76; RESP 12; TEMP 97.2; O2SAT 92
[2023-05-23] MEDS: oxyCODONE IR 5mg (immed. release) tablet PO PRN ×3 (08:49→18:17)
[2023-05-23] MEDS: busPIRone 5mg tablet PO SCH ×3 (08:49→20:49)
[2023-05-23] MEDS: HYDROchlorothiazide 12.5mg capsule PO SCH (08:50)
[2023-05-23] MEDS: lisinopril 20mg tablet PO SCH (08:50)
[2023-05-23] MEDS: gabapentin 400mg capsule PO SCH ×2 (08:51→13:33)
[2023-05-23] MEDS: nicotine 21mg patch - 24 hr TD SCH (08:51)
[2023-05-23] MEDS: loratadine 10mg tablet PO SCH (08:51)
[2023-05-23] MEDS: multivitamins, therapeutics tablet PO SCH (08:52)
[2023-05-23] MEDS: ESCITALOPRAM OXALATE 5 MG TABLET PO SCH (08:52)
[2023-05-23] MEDS: NIFEdipine XL 30mg tablet PO SCH (09:02)
[2023-05-23] MEDS: budesonide 0.5mg/2ml UD nebule IH SCH ×2 (09:30→19:41)
--- NOTE | 2023-05-23 13:12 | NUR ---
pt. missed 0800 SVN-sleeping without SOB
--- NOTE | 2023-05-23 13:31 | NUR ---
Met with patient in regards to substance use and to bring patient a list of resources for treatment options. Patient has been at [facility] in the past. I gave [facility] number to get that process started if she wanted to go to inpatient. I gave a list of different facilities, a card for [facility] and my card to call me with any questions.
[2023-05-23] MEDS: hydrOXYzine 25 MG tablet PO PRN (17:19)
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
[2023-05-23 19:00] VITALS: RESP 18; O2SAT 93
[2023-05-23 19:03] VITALS: BP 133/56; PULSE 78; RESP 20; TEMP 98.4; O2SAT 93
[2023-05-23 19:42] VITALS: PULSE 81; RESP 16; O2SAT 95
[2023-05-23] MEDS: albuterol 2.5 MG/3 ML nebule NEB PRN (19:42)
[2023-05-23 19:56] VITALS: PULSE 81; RESP 16
[2023-05-23] MEDS: gabapentin 300mg capsule PO SCH (20:50)
[2023-05-23] MEDS ORDERED: traZODone 50mg tablet PO ONE (23:10)
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
[2023-05-24 07:00] VITALS: RESP 16; O2SAT 93
[2023-05-24 07:31] VITALS: BP 147/52; PULSE 57; RESP 16; TEMP 98.1; O2SAT 93
[2023-05-24] MEDS: multivitamins, therapeutics tablet PO SCH (07:42)
[2023-05-24] MEDS: gabapentin 400mg capsule PO SCH ×2 (07:42→12:13)
[2023-05-24] MEDS: HYDROchlorothiazide 12.5mg capsule PO SCH (07:42)
[2023-05-24] MEDS: loratadine 10mg tablet PO SCH (07:43)
[2023-05-24] MEDS: lisinopril 20mg tablet PO SCH (07:43)
[2023-05-24] MEDS: NIFEdipine XL 30mg tablet PO SCH (07:43)
[2023-05-24] MEDS: ESCITALOPRAM OXALATE 5 MG TABLET PO SCH (07:43)
[2023-05-24] MEDS: busPIRone 5mg tablet PO SCH ×3 (07:44→20:54)
[2023-05-24] MEDS: nicotine 21mg patch - 24 hr TD SCH (07:44)
[2023-05-24] MEDS: oxyCODONE IR 5mg (immed. release) tablet PO PRN ×2 (07:54→20:55)
[2023-05-24] MEDS: budesonide 0.5mg/2ml UD nebule IH SCH ×2 (09:27→21:27)
[2023-05-24] MEDS: albuterol 2.5 MG/3 ML nebule NEB PRN (09:27)
[2023-05-24 09:28] VITALS: PULSE 66; RESP 16; O2SAT 90
[2023-05-24 09:37] VITALS: PULSE 69; RESP 16
[2023-05-24] MEDS ORDERED: oxyCODONE IR 5mg (immed. release) tablet PO ONE (12:50)
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
[2023-05-24 19:00] VITALS: RESP 18; O2SAT 93
[2023-05-24 19:41] VITALS: BP 139/54; PULSE 76; RESP 16; TEMP 98.7; O2SAT 93
[2023-05-24] MEDS: traZODone 50mg tablet PO SCH (20:54)
[2023-05-24] MEDS: gabapentin 300mg capsule PO SCH (20:54)
[2023-05-25] VITALS (7 sets, daily range): BP systolic 140–149; BP diastolic 48–52; PULSE 69–75; RESP 16–20; TEMP 97.4–98.4; O2SAT 92–95
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
[2023-05-25] MEDS: oxyCODONE IR 5mg (immed. release) tablet PO PRN ×3 (03:11→12:17)
[2023-05-25] MEDS: budesonide 0.5mg/2ml UD nebule IH SCH ×2 (08:29→19:45)
[2023-05-25] MEDS: albuterol 2.5 MG/3 ML nebule NEB PRN ×2 (08:29→19:46)
[2023-05-25] MEDS: HYDROchlorothiazide 12.5mg capsule PO SCH (08:30)
[2023-05-25] MEDS: busPIRone 5mg tablet PO SCH ×3 (08:30→20:08)
[2023-05-25] MEDS: gabapentin 400mg capsule PO SCH ×2 (08:30→14:13)
[2023-05-25] MEDS: nicotine 21mg patch - 24 hr TD SCH (08:30)
[2023-05-25] MEDS: ESCITALOPRAM OXALATE 5 MG TABLET PO SCH (08:31)
[2023-05-25] MEDS: lisinopril 20mg tablet PO SCH (08:31)
[2023-05-25] MEDS: loratadine 10mg tablet PO SCH (08:31)
[2023-05-25] MEDS: NIFEdipine XL 30mg tablet PO SCH (08:31)
[2023-05-25] MEDS: multivitamins, therapeutics tablet PO SCH (08:32)
[2023-05-25] MEDS: hydrOXYzine 25 MG tablet PO PRN (17:05)
[2023-05-25] MEDS ORDERED: oxyCODONE IR 5mg (immed. release) tablet PO ONE (17:10)
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
[2023-05-25] MEDS: traZODone 50mg tablet PO SCH (20:08)
[2023-05-25] MEDS: gabapentin 300mg capsule PO SCH (20:09)
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
[2023-05-26] MEDS: budesonide 0.5mg/2ml UD nebule IH SCH (07:58)
[2023-05-26 08:00] VITALS: BP 140/68; PULSE 79; RESP 18; TEMP 97.5; O2SAT 92
[2023-05-26] MEDS: ESCITALOPRAM OXALATE 5 MG TABLET PO SCH (08:35)
[2023-05-26] MEDS: nicotine 21mg patch - 24 hr TD SCH (08:35)
[2023-05-26] MEDS: oxyCODONE IR 5mg (immed. release) tablet PO PRN ×2 (08:35→12:55)
[2023-05-26] MEDS: busPIRone 5mg tablet PO SCH ×2 (08:36→12:56)
[2023-05-26] MEDS: NIFEdipine XL 30mg tablet PO SCH (08:36)
[2023-05-26] MEDS: multivitamins, therapeutics tablet PO SCH (08:36)
[2023-05-26] MEDS: HYDROchlorothiazide 12.5mg capsule PO SCH (08:36)
[2023-05-26 08:37] VITALS: BP_SYST 140; PULSE 79
[2023-05-26] MEDS: lisinopril 20mg tablet PO SCH (08:37)
[2023-05-26] MEDS: loratadine 10mg tablet PO SCH (08:38)
[2023-05-26] MEDS: gabapentin 400mg capsule PO SCH ×2 (08:38→12:55)
[2023-05-26] MEDS ORDERED: NICO-907 BC (12:16)
[2023-05-26] MEDS ORDERED: HYDR-3686 PO (12:16)
[2023-05-26] MEDS ORDERED: TRAZ-251 PO (12:16)
[2023-05-26] MEDS ORDERED: OXYC-658 PO (12:16)
[2023-05-26] MEDS ORDERED: BUSP-28 PO (12:16)
[2023-05-26] MEDS ORDERED: gabapentin capsule PO (12:16)
[2023-05-26] MEDS ORDERED: NICO-687 TD (12:16)
[2023-05-26] MEDS ORDERED: ESCI20TA39 PO (12:16)
[2023-05-26] MEDS ORDERED: GABA-535 PO ×2 (12:42)
== END 2023-05-26 14:56 | disposition home or self-care (01) | DRG 885 ==
LOC: ER 09:52 → ED HOLD 05-16 08:42 → ADULT MH 05-16 09:40
PROVIDERS: ADMIT Psychiatry & Neurology Psychiatry; ATTEND Psychiatry & Neurology Psychiatry
DX: F33.2 Major depressive disorder, recurrent severe without psychotic features (principal); R45.851 Suicidal ideations; I10 Essential (primary) hypertension; M19.90 Unspecified osteoarthritis, unspecified site; F17.210 Nicotine dependence, cigarettes, uncomplicated; Z20.822 Contact with and (suspected) exposure to COVID-19; G47.00 Insomnia, unspecified; F41.9 Anxiety disorder, unspecified; G89.4 Chronic pain syndrome; E66.01 Morbid (severe) obesity due to excess calories; F43.10 Post-traumatic stress disorder, unspecified; D72.829 Elevated white blood cell count, unspecified; J44.9 Chronic obstructive pulmonary disease, unspecified; K74.60 Unspecified cirrhosis of liver; F19.10 Other psychoactive substance abuse, uncomplicated; K43.9 Ventral hernia without obstruction or gangrene; N20.0 Calculus of kidney; Z68.30 Body mass index [BMI] 30.0-30.9, adult; Z87.442 Personal history of urinary calculi; Z79.899 Other long term (current) drug therapy; Z87.820 Personal history of traumatic brain injury; Z80.1 Family history of malignant neoplasm of trachea, bronchus and lung
CPT/HCPCS: 36415; 74176; 80053; 80061; 80305; 80320; 81001; 81025; 83036; 84439; 84443; 85008; 85025; 87081; 87811; 94640; 94760; 99285; Q0177

== ENCOUNTER 2023-11-24 09:01 | Emergency (ER) | payer BC, MEDICAID ==
[~2023-11-24] VITALS: Ht 172.7 cm; Wt 88.2 kg
[~2023-11-24 09:01] MED LIST changes: +ALBU18HF2 INH; -ALBU8.5H17 INH; +BUDE10.2 INH; +BUSP-28 PO; -BUSP10TA10 PO; -CHOL400T57 PO; -DULO60CA65 PO; +ESCI20TA39 PO; -FLUT1BLS4 PO; +GABA-535 PO; +HYDR-3686 PO; -LACT1CAP26 PO; +LORA10TA7 PO; +MULT-1074 PO; +NICO-687 TD; -NICO-687 TOP; +NICO-907 BC; +NIFE-73 PO; -OMEP20CA16 PO; +OXYC-658 PO; -OXYC1TAB17 PO; +TRAZ-251 PO
[2023-11-24] MEDS ORDERED: dexamethasone sod phosphate 10mg/ml inj IV STA (09:41)
[2023-11-24 11:07] LABS: BILIRUBIN,URINE NEGATIVE (Neg); CLARITY,URINE TURBID (Clear); COLOR,URINE YELLOW (Yellow); GLUCOSE, URINE NEGATIVE (Neg); KETONES,URINE NEGATIVE (Neg); LEUKOCYTE ESTERASE ,URINE NEGATIVE (Neg); NITRITES, URINE NEGATIVE (Neg); OCCULT BLOOD,URINE TRACE-INTACT (Neg); PH,URINE 5.5 (4.8-8.0); PROTEIN,URINE NEGATIVE (Neg); UROBILINOGEN,URINE 0.2 E.U/dL (0.2-1.0)
[2023-11-24 11:19] LABS: UA COLLECTION TYPE CLN CATCH MIDSTREAM
[2023-11-24 11:20] LABS: BACTERIA,URINE 3+ /HPF (Neg); MUCUS STRANDS MANY /LPF (Neg); SQUAMOUS EPITHELIAL CELL,UR MANY /LPF (FEW)
[2023-11-24 11:25] LABS: BASOPHILS % (AUTO) 0.3 % (0-1); EOSINOPHILS # (AUTO) 0.3 X10'3 (0-0.9); EOSINOPHILS % (AUTO) 2.5 % (0-6); HEMATOCRIT 40.9 % (35.0-45.0); HEMOGLOBIN 13.6 g/dl (12.0-16.0); LYMPHOCYTES # (AUTO) 1.1 X10'3 (1.1-4.8); LYMPHOCYTES % (AUTO) 9.1 % (21-51); MEAN CORPUSCULAR HGB CONC 33.2 g/dL (33.0-36.5); MEAN CORPUSCULAR VOLUME 93.3 FL (78-98); MEAN PLATELET VOLUME 10.8 FL (7.4-10.4); MONOCYTES % (AUTO) 8.8 % (2-12); NEUTROPHILS # (AUTO) 9.4 X10'3 (1.8-7.7); NEUTROPHILS % (AUTO) 79.3 % (42-75); PLATELET COUNT 173 X10'3 (140-440); RED BLOOD COUNT 4.38 X10'6 (4.20-5.60); RED CELL DISTRIBUTION WIDTH 14.5 % (11.5-14.5); WHITE BLOOD COUNT 11.8 X10'3 (4.5-11.0)
[2023-11-24 11:30] LABS: ALBUMIN 3.5 G/DL (3.4-5.0); ANION GAP 5 (8-16); BLOOD UREA NITROGEN 15 MG/DL (7-18); BUN/CREATININE RATIO 21.7 (10.0-20.0); CALCIUM 8.6 MG/DL (8.5-10.1); CHLORIDE 102 MMOL/L (99-107); CREATININE 0.69 MG/DL (0.40-0.90); GLUCOSE 115 MG/DL (70-104); POTASSIUM 3.6 MMOL/L (3.5-5.1); PRO BRAIN NATRIURETIC PEPTIDE 52 PG/ML (0-125); SODIUM 141 MMOL/L (135-145); TOTAL CARBON DIOXIDE 33.6 MMOL/L (24-32); eCRCL 84 ML/MIN; eGFR 86 ML/MIN
[2023-11-24] MEDS: albuterol 2.5 MG/3 ML nebule CONTNEB PRN (12:38)
[2023-11-24 12:48] LABS: PLATELET ESTIMATE NORMAL
[2023-11-24 12:49] LABS: LARGE PLATELETS FEW; STOMATOCYTES 1+
[2023-11-24] MEDS: dexamethasone sod phosphate 10mg/ml inj PO STA (13:04)
[2023-11-24 13:15] VITALS: PULSE 82; RESP 20; RESP 24; O2SAT 100
[2023-11-24] MEDS: CefTRIAXone 1000mg IM Kit (w/lidocaine diluent) IM ONE (13:32)
[2023-11-24] MEDS ORDERED: PRED20TA PO (13:42)
[2023-11-24 13:52] VITALS: BP 132/64; PULSE 89; RESP 18; TEMP 97.9; O2SAT 99
== END 2023-11-24 13:54 | disposition home or self-care (01) ==
LOC: ER 09:01
DX: J20.9 Acute bronchitis, unspecified (principal); I10 Essential (primary) hypertension; J44.9 Chronic obstructive pulmonary disease, unspecified; F12.10 Cannabis abuse, uncomplicated; Z87.81 Personal history of (healed) traumatic fracture; Z79.899 Other long term (current) drug therapy; Z79.1 Long term (current) use of non-steroidal anti-inflammatories (NSAID); Z79.2 Long term (current) use of antibiotics
CPT/HCPCS: 36415; 71046; 80048; 81001; 83605; 83880; 84145; 84484; 85008; 85025; 87040; 87502; 87503; 93005; 94640; 94644; 96372; 99285; J0696; J1100; 94760; A7015